=== PATIENT | male | born 1955 | race Caucasian/White ===

== ENCOUNTER 2018-09-25 19:41 | Inpatient (IN) ==
[2018-09-25] MEDS ORDERED: Ondansetron 4 MG/2 ML VIAL IVP ONE ×2 (20:51→23:18)
[2018-09-25] MEDS ORDERED: 0.9 % Sodium Chloride 1,000 ML IVC ONE (20:51)
[2018-09-25 21:08] LABS: Basophils % 0.5 %; Eosinophils % 0.4 %; Hematocrit 51.1 % (37.5-50.1); Immature Granulocytes % 0.3 % (0-4); Lymphocytes % 12.7 %; Mean Corpuscular HGB Conc 35.2 g/dL (31.6-35.5); Mean Corpuscular Hemoglobin 30.3 pg (28.0-33.3); Mean Platelet Volume 9.7 fL (9.4-12.4); Monocytes # 0.9 K/mcL (0.0-1.3); Monocytes % 11.6 %; Neutrophils # 5.8 K/mcL (1.6-8.9); Platelet Count 328 K/mcL (140-400); Red Blood Count 5.94 M/mcL (4.19-5.50); Red Cell Distribution Width 12.6 % (11.5-14.5); Segmented Neutrophils % 74.5 %
[2018-09-25] MEDS ORDERED: Isovue-370 500 ML BOTTLE IVP ONE (21:20)
[2018-09-25 21:30] LABS: Alanine Aminotransferase 78 Units/L (7-52); Albumin 4.5 g/dL (3.5-5.7); Albumin/Globulin Ratio 1.5 (1.1-2.2); Alkaline Phosphatase 80 Units/L (34-104); Aspartate Amino Transferase 45 Units/L (13-39); BUN/Creatinine Ratio 24 (6-26); Bilirubin,Total 1.2 mg/dL (0.3-1.0); Blood Urea Nitrogen 33 mg/dL (8-23); Calcium 9.6 mg/dL (8.6-10.3); Carbon Dioxide 21 mEq/L (23-29); Chloride 90 mEq/L (98-107); Globulin 3.1 g/dL (2.4-3.5); Glucose 191 mg/dL (70-105); Lipase 28 Units/L (11-82); Osmolality,Calculated 280 (280-300); Potassium 3.8 mEq/L (3.5-5.1); Sodium 129 mEq/L (136-145); Total Protein 7.6 g/dL (6.4-8.9); eGFR For Non-African Americans 53 (> 60)
--- NOTE | 2018-09-25 21:35 | Emergency Department Note ---
Disposition Clinical Impression: Small bowel obstruction, GIOVANNY (acute kidney injury) Disposition: Admitted As Inpatient Condition: Good Nausea/Vomiting/Diarrhea HPI - General Chief complaint: ED Nausea/Vomiting/Diarrhea Stated complaint: abd pain/vomiting Time Seen by Provider: 09/25/18 19:49 Source: patient, family Mode of arrival: private vehicle Limitations: no limitations Nursing Notes Reviewed: Yes Vital Signs Reviewed: Yes - History of Present Illness HPI Narrative: 63-year-old male history of a large right lower quadrant hernia who presents with complaints of nausea vomiting and abdominal pain. He most recently had a CT scan roughly 1 week ago for preoperative planning to repair his hernia berny pryor. Reports on Thursday he picked up his brother. Thursday he started having pain in his right lower quadrant followed Thursday by nausea and vomiting. Mother is currently hospitalized for kidney stone as well as "stomach virus". The patient reports only intermittently being able to keep down any solid foods. Reports sharp pain worse with coughing in the area of his hernia as well as wrapping around to his left side. This appears to be new for him. Denies any prior surgical history of his abdomen. No other complaints. Pt Subjective Complaint: nausea, vomiting, abdominal pain Onset (ago): day(s) Consistency: intermittent Improves with: nothing Worsens with: nonthing Associated symptoms: Reports: nausea/vomiting - Related Data Home Medications Medication Instructions Recorded Confirmed Aspirin 05/24/18 Carvedilol 05/24/18 Clopidogrel 05/24/18 Famotidine 05/24/18 Glimepiride 05/24/18 Isosorbide MONOnitrate 05/24/18 Januvia 05/24/18 Simvastatin 05/24/18 metFORMIN 05/24/18 Previous Rx's Medication Instructions Recorded RX: Amoxicillin 875 mg PO BID 7 Days #14 tablet 05/24/18 RX: Cetirizine HCl 10 mg PO DAILY 30 Days #30 tablet 05/24/18 Allergies Allergy/AdvReac Type Severity Reaction Status Date / Time No Known Allergies Allergy Verified 05/24/18 08:26 All systems ED: reviewed and negative except as stated. Constitutional: Denies: fever Gastrointestinal: Reports: abdominal pain, nausea, vomiting. Denies: diarrhea, constipation Genitourinary: Denies: dysuria, hematuria Past Medical History - Past Medical History Attestation: Yes The following information was validated with the patient. Source: patient Medical history: Reports: coronary artery disease, diabetes, hypertension, myocardial infarction, other Psychiatric history: Reports: no psych history - Social History Smoking Status: Current every day smoker Smokeless Tobacco Status: No Alcohol use: Reports: none Drug use: Reports: none Physical Exam - General Limitations: no limitations General appearance: alert, in no apparent distress - Head Head exam: atraumatic, normocephalic, normal inspection - Eye Eye exam: Present: normal appearance - ENT ENT exam: normal exam - Neck Neck exam: Present: normal inspection - Chest Chest inspection: Present: normal inspection, symmetric chest wall rise - Respiratory Respiratory exam: Present: normal lung sounds bilaterally - Cardiovascular Cardiovascular exam: Present: normal rhythm, tachycardia, normal heart sounds - Abdominal Exam Abdominal exam: Present: soft, tenderness (Patient has moderate right lower qu adrant tenderness with a very large right lower quadrant hernia. No overlying cutaneous discoloration.), hernia Abdominal tenderness: Present: RLQ - Extremities Exam Extremities exam: Present: normal inspection, full ROM - Expanded Upper Extremity Exam Shoulder exam: Present: normal inspection, full ROM Arm exam: Present: normal inspection, full ROM Elbow exam: Present: normal inspection, full ROM Forearm/Wrist exam: Present: normal inspection, full ROM Hand exam: Present: normal inspection, full ROM - Expanded Lower Extremity Exam Hip/Pelvis exam: Present: normal inspection, full ROM Upper leg exam: Present: normal inspection, full ROM Knee exam: Present: normal inspection, full ROM Lower leg exam: Present: normal inspection, full ROM Ankle exam: Present: normal inspection, full ROM Foot/toe exam: Present: normal inspection, full ROM - Skin Skin exam: Present: warm, dry Course Course Narrative: Patient seen and examined. Vital signs reviewed. Plan for CT, labs, urinalysis. I discussed with patient and family about repeating imaging and they are in agreement at this time despite him just recently having imaging. We will give him some IV fluids and anti-emetics. - Consultations Consultation #1: I spoke with the on-call surgeon . Discussed patient's history, medical problems, exam, imaging and labs. Evidence of small bowel obstruction. Plan to admit to the hospitalist service. Recommends an NG tube at this time. Vital Signs Temperature 98.1 F 09/25/18 20:00 Pulse Rate 113 09/25/18 20:00 Respiratory Rate 20 09/25/18 20:00 Blood Pressure 120/76 09/25/18 20:00 O2 Sat by Pulse Oximetry 98 09/25/18 20:00 Temperature 98.1 F 09/25/18 20:00 Pulse Rate 101 09/25/18 23:32 Respiratory Rate 16 09/25/18 23:32 Blood Pressure 111/82 09/25/18 23:32 O2 Sat by Pulse Oximetry 96 09/25/18 23:32 Oxygen Delivery Oxygen Delivery Room Air Nausea/Vomiting/Diarrhea - MDM Narrative Medical decision making narrative: 63-year-old male presenting with abdominal pain nausea and vomiting found to have a small bowel obstruction secondary to his large ventral hernia. Labs reviewed with a mild acute kidney injury likely secondary to his dehydration from vomiting. Case discussed with surgery. Plan to admit to the hospitalist with surgical consultation. - Lab Data Lab results reviewed: Yes I reviewed the patient's lab results. Result diagrams: 09/25/18 20:45 09/25/18 20:45 Lab Results 09/25/18 09/25/18 09/25/18 Range/Units 20:45 20:45 20:45 WBC 7.8 (4.3-11.1) K/mcL RBC 5.94 H (4.19-5.50) M/mcL Hgb 18.0 H (12.9-16.9) g/dL Hct 51.1 H (37.5-50.1) % MCV 86.0 (83.0-100.0) fL MCH 30.3 (28.0-33.3) pg MCHC 35.2 (31.6-35.5) g/dL RDW 12.6 (11.5-14.5) % Plt Count 328 (140-400) K/mcL MPV 9.7 (9.4-12.4) fL Immature Gran % 0.3 (0-4) % Seg Neutrophils % 74.5 % Lymphocytes % 12.7 % Monocytes % 11.6 % Eosinophils % 0.4 % Basophils % 0.5 % Neutrophils # 5.8 (1.6-8.9) K/mcL Lymphocytes # 1.0 (0.6-4.6) K/mcL Monocytes # 0.9 (0.0-1.3) K/mcL Eosinophils # 0.0 (0.0-0.6) K/mcL Basophils # 0.0 (0.0-0.2) K/mcL PT (9.4-12.1) Seconds INR Sodium 129 L (136-145) mEq/L Potassium 3.8 (3.5-5.1) mEq/L Chloride 90 L (98-107) mEq/L Carbon Dioxide 21 L (23-29) mEq/L BUN 33 H (8-23) mg/dL Creatinine 1.35 H (0.70-1.30) mg/dL Est GFR ( Amer) > 60 (> 60) Est GFR (Non-Af Amer) 53 L (> 60) BUN/Creatinine Ratio 24 (6-26) Glucose 191 H (70-105) mg/dL Calculated Osmolality 280 (280-300) Lactic Acid 2.0 (0.5-2.2) mmol/L Calcium 9.6 (8.6-10.3) mg/dL Total Bilirubin 1.2 H (0.3-1.0) mg/dL AST 45 H (13-39) Units/L ALT 78 H (7-52) Units/L Alkaline Phosphatase 80 (34-104) Units/L Serum Total Protein 7.6 (6.4-8.9) g/dL Albumin 4.5 (3.5-5.7) g/dL Globulin 3.1 (2.4-3.5) g/dL Albumin/Globulin Ratio 1.5 (1.1-2.2) Lipase 28 (11-82) Units/L Urine Color (Yellow) Urine Clarity (Clear) Urine pH (5.0-8.0) pH Units Ur Specific [place] (1.010-1.025) Urine Protein (Neg-Trace) mg/dL Urine Glucose (UA) (Normal) mg/dL Urine Ketones (Negative) mg/dL Urine Blood (Negative) Urine Nitrite (Negative) Urine Bilirubin (Negative) Urine Urobilinogen (Normal) mg/dL Ur Leukocyte Esterase (Negative) Ur Culture Indicated? (NO) 09/25/18 09/25/18 Range/Units 23:03 23:13 WBC (4.3-11.1) K/mcL RBC (4.19-5.50) M/mcL Hgb (12.9-16.9) g/dL Hct (37.5-50.1) % MCV (83.0-100.0) fL MCH (28.0-33.3) pg MCHC (31.6-35.5) g/dL RDW (11.5-14.5) % Plt Count (140-400) K/mcL MPV (9.4-12.4) fL Immature Gran % (0-4) % Seg Neutrophils % % Lymphocytes % % Monocytes % % Eosinophils % % Basophils % % Neutrophils # (1.6-8.9) K/mcL Lymphocytes # (0.6-4.6) K/mcL Monocytes # (0.0-1.3) K/mcL Eosinophils # (0.0-0.6) K/mcL Basophils # (0.0-0.2) K/mcL PT 11.5 (9.4-12.1) Seconds INR 1.0 Sodium (136-145) mEq/L Potassium (3.5-5.1) mEq/L Chloride (98-107) mEq/L Carbon Dioxide (23-29) mEq/L BUN (8-23) mg/dL Creatinine (0.70-1.30) mg/dL Est GFR ( Amer) (> 60) Est GFR (Non-Af Amer) (> 60) BUN/Creatinine Ratio (6-26) Glucose (70-105) mg/dL Calculated Osmolality (280-300) Lactic Acid (0.5-2.2) mmol/L Calcium (8.6-10.3) mg/dL Total Bilirubin (0.3-1.0) mg/dL AST (13-39) Units/L ALT (7-52) Units/L Alkaline Phosphatase (34-104) Units/L Serum Total Protein (6.4-8.9) g/dL Albumin (3.5-5.7) g/dL Globulin (2.4-3.5) g/dL Albumin/Globulin Ratio (1.1-2.2) Lipase (11-82) Units/L Urine Color Dark Yellow (Yellow) Urine Clarity Clear (Clear) Urine pH 5.5 (5.0-8.0) pH Units Ur Specific [place] > 1.030 H (1.010-1.025) Urine Protein Negative (Neg-Trace) mg/dL Urine Glucose (UA) Normal (Normal) mg/dL Urine Ketones 15 H (Negative) mg/dL Urine Blood Negative (Negative) Urine Nitrite Negative (Negative) Urine Bilirubin Small H (Negative) Urine Urobilinogen Normal (Normal) mg/dL Ur Leukocyte Esterase Negative (Negative) Ur Culture Indicated? NO (NO) - Radiology Data Radiology results reviewed: Yes I reviewed the patient's radiology results. Abdomen/Pelvis CT 09/25/18 21:20 IMPRESSION: There is a distal small bowel obstruction with the point of obstruction within a large complex right lower quadrant ventral hernia. Small bowel obstruction is new from 09/17/2018. There is mural thickening involving several small bowel loops within the hernia and there is mild mesenteric fat stranding. This large ventral hernia contains distal small bowel loops, the ileocecal valve, the cecum and appendix. Calcific aorto iliac atherosclerotic disease. There is a small left lateral penetrating ulcer versus small saccular aneurysm, unchanged. D/ / Shakir Nash MD / Shakir Nash MD Interpreting Provider: Shakir Nash MD Brian - Brian Situation: Demographics, MOA Background: Presenting Complaint, Relevant PMH, Meds, & Allergies Assessment: Course and respsone to treatment, Exam Concerns, Patient/Family Expectation, Pertinant Lab Results Recommendation: Barrier(s) to disposition, Recommendation based on pending studies, treatments, or consults Brian Report Given to: Dr. Hank Torres Repor Time: 23:55
[2018-09-25] MEDS ORDERED: *HR* Morphine 2 MG/ML SYRINGE IVP ONE (23:18)
[2018-09-25] MEDS ORDERED: *HR* FentaNYL (PF) 100 MCG/2 ML VIAL IVP ONE (23:20)
[2018-09-25 23:30] LABS: Prothrombin Time 11.5 Seconds (9.4-12.1)
--- NOTE | 2018-09-25 23:37 | Emergency Department Note ---
Disposition Clinical Impression: Small bowel obstruction Disposition: Admitted As Inpatient Condition: Good Referrals: NONE,PCP [Primary Care Provider] - Forms: ED Satisfaction Letter General Adult HPI - General Chief complaint: ED Nausea/Vomiting/Diarrhea Stated complaint: abd pain/vomiting Time Seen by Provider: 09/25/18 19:49 Source: patient, family Mode of arrival: private vehicle Limitations: no limitations - History of Present Illness Pain Scale: 6 - Related Data Home Medications Medication Instructions Recorded Confirmed Aspirin 05/24/18 Carvedilol 05/24/18 Clopidogrel 05/24/18 Famotidine 05/24/18 Glimepiride 05/24/18 Isosorbide MONOnitrate 05/24/18 Januvia 05/24/18 Simvastatin 05/24/18 metFORMIN 05/24/18 Previous Rx's Medication Instructions Recorded Amoxicillin 875 mg PO BID 7 Days #14 tablet 05/24/18 Cetirizine HCl 10 mg PO DAILY 30 Days #30 tablet 05/24/18 Allergies Allergy/AdvReac Type Severity Reaction Status Date / Time No Known Allergies Allergy Verified 05/24/18 08:26 Constitutional: Denies: fever Gastrointestinal: Reports: abdominal pain, nausea, vomiting. Denies: diarrhea, constipation Genitourinary: Denies: dysuria, hematuria Past Medical History - Past Medical History Medical history: Reports: coronary artery disease, diabetes, hypertension, myocardial infarction, other Psychiatric history: Reports: no psych history - Social History Smoking Status: Current every day smoker Smokeless Tobacco Status: No Alcohol use: Reports: none Drug use: Reports: none Physical Exam - General Limitations: no limitations General appearance: alert, in no apparent distress Course Vital Signs Temperature 98.1 F 09/25/18 20:00 Pulse Rate 113 09/25/18 20:00 Respiratory Rate 20 09/25/18 20:00 Blood Pressure 120/76 09/25/18 20:00 O2 Sat by Pulse Oximetry 98 09/25/18 20:00 Temperature 98.1 F 09/25/18 20:00 Pulse Rate 101 09/25/18 23:32 Respiratory Rate 16 09/25/18 23:32 Blood Pressure 111/82 09/25/18 23:32 O2 Sat by Pulse Oximetry 96 09/25/18 23:32 Oxygen Delivery Oxygen Delivery Room Air Medical Decision Making - Lab Data Result diagrams: 09/25/18 20:45 09/25/18 20:45 Lab Results 09/25/18 09/25/18 09/25/18 Range/Units 20:45 20:45 20:45 WBC 7.8 (4.3-11.1) K/mcL RBC 5.94 H (4.19-5.50) M/mcL Hgb 18.0 H (12.9-16.9) g/dL Hct 51.1 H (37.5-50.1) % MCV 86.0 (83.0-100.0) fL MCH 30.3 (28.0-33.3) pg MCHC 35.2 (31.6-35.5) g/dL RDW 12.6 (11.5-14.5) % Plt Count 328 (140-400) K/mcL MPV 9.7 (9.4-12.4) fL Immature Gran % 0.3 (0-4) % Seg Neutrophils % 74.5 % Lymphocytes % 12.7 % Monocytes % 11.6 % Eosinophils % 0.4 % Basophils % 0.5 % Neutrophils # 5.8 (1.6-8.9) K/mcL Lymphocytes # 1.0 (0.6-4.6) K/mcL Monocytes # 0.9 (0.0-1.3) K/mcL Eosinophils # 0.0 (0.0-0.6) K/mcL Basophils # 0.0 (0.0-0.2) K/mcL PT (9.4-12.1) Seconds INR Sodium 129 L (136-145) mEq/L Potassium 3.8 (3.5-5.1) mEq/L Chloride 90 L (98-107) mEq/L Carbon Dioxide 21 L (23-29) mEq/L BUN 33 H (8-23) mg/dL Creatinine 1.35 H (0.70-1.30) mg/dL Est GFR ( Amer) > 60 (> 60) Est GFR (Non-Af Amer) 53 L (> 60) BUN/Creatinine Ratio 24 (6-26) Glucose 191 H (70-105) mg/dL Calculated Osmolality 280 (280-300) Lactic Acid 2.0 (0.5-2.2) mmol/L Calcium 9.6 (8.6-10.3) mg/dL Total Bilirubin 1.2 H (0.3-1.0) mg/dL AST 45 H (13-39) Units/L ALT 78 H (7-52) Units/L Alkaline Phosphatase 80 (34-104) Units/L Serum Total Protein 7.6 (6.4-8.9) g/dL Albumin 4.5 (3.5-5.7) g/dL Globulin 3.1 (2.4-3.5) g/dL Albumin/Globulin Ratio 1.5 (1.1-2.2) Lipase 28 (11-82) Units/L 09/25/18 Range/Units 23:13 WBC (4.3-11.1) K/mcL RBC (4.19-5.50) M/mcL Hgb (12.9-16.9) g/dL Hct (37.5-50.1) % MCV (83.0-100.0) fL MCH (28.0-33.3) pg MCHC (31.6-35.5) g/dL RDW (11.5-14.5) % Plt Count (140-400) K/mcL MPV (9.4-12.4) fL Immature Gran % (0-4) % Seg Neutrophils % % Lymphocytes % % Monocytes % % Eosinophils % % Basophils % % Neutrophils # (1.6-8.9) K/mcL Lymphocytes # (0.6-4.6) K/mcL Monocytes # (0.0-1.3) K/mcL Eosinophils # (0.0-0.6) K/mcL Basophils # (0.0-0.2) K/mcL PT 11.5 (9.4-12.1) Seconds INR 1.0 Sodium (136-145) mEq/L Potassium (3.5-5.1) mEq/L Chloride (98-107) mEq/L Carbon Dioxide (23-29) mEq/L BUN (8-23) mg/dL Creatinine (0.70-1.30) mg/dL Est GFR ( Amer) (> 60) Est GFR (Non-Af Amer) (> 60) BUN/Creatinine Ratio (6-26) Glucose (70-105) mg/dL Calculated Osmolality (280-300) Lactic Acid (0.5-2.2) mmol/L Calcium (8.6-10.3) mg/dL Total Bilirubin (0.3-1.0) mg/dL AST (13-39) Units/L ALT (7-52) Units/L Alkaline Phosphatase (34-104) Units/L Serum Total Protein (6.4-8.9) g/dL Albumin (3.5-5.7) g/dL Globulin (2.4-3.5) g/dL Albumin/Globulin Ratio (1.1-2.2) Lipase (11-82) Units/L Attestation Statement - Attestation Attestation: I examined this patient and my medical decision-making was reviewed with the Resident Physician. I agree with the documented findings, disposition and treatment plan as described except to the extent set forth below. 63 yaer old male presents to the Ed with complaints of abdominal pain and states that he has not been able to toleate PO since Thursday. Elza appers ot have a large ventral hernia with SBO on exam. We have discussed with Dr. Richards and he will be admitted to medicine with surg consult. Elza will have a NG tube placed and likely have surgery tomorrow
[2018-09-25 23:48] LABS: Bilirubin,Urine Small (Negative); Blood,Urine Negative (Negative); Clarity,Urine Clear (Clear); Color,Urine Dark Yellow (Yellow); Glucose,Urine (UA) Normal (Normal); Ketones,Urine 15 mg/dL (Negative); Leukocyte Esterase,Urine Negative (Negative); Nitrite,Urine Negative (Negative); PH,Urine 5.5 pH Units (5.0-8.0); Protein,Urine Negative (Neg-Trace); Specific Gravity,Urine > 1.030 (1.010-1.025); Urobilinogen,Urine Normal (Normal)
[2018-09-26] MEDS ORDERED: Naloxone 0.4 MG/ML INJ IVP PRN ×2 (02:33→14:57)
--- NOTE | 2018-09-26 02:44 | Internal Med History&Physical ---
Date of Encounter: 09/26/18 Time of Encounter: 03:30 Internal Medicine - H&P: HPI Chief complaint: Small bowel obstruction Admitted From: Emergency Dept Plans for Post Hospital Care: Home History of present illness: Mr. العراقي is a 63 year old male Patient presented to the emergency room with complaints of abdominal pain, nausea and vomiting. He is a known history of large right lower quadrant hernia. He had a CT scan about 1 week ago for preoperative planning. He says on Thursday he picked up his brother, done the following day began having right lower quadrant pain that increased in intensity throughout the week. Since then he has not been able to keep down solid foods. He describes the pain as sharp in nature and hurts worse with coughing. There is some radiation that goes around to his left side. He has no other history of abdominal surgeries. In the emergency room patient's vital signs initially showed tachycardia with rate of 113 and respiratory rate of 20 but these improved over time. Patient's white count was 7.8 and hemoglobin was 18.0. His INR was 1.0, sodium was 129 and creatinine was 1.35. He also has elevated bilirubin, AST and ALT all of which have improved from previous laboratory studies Patient's urinalysis was negative for infection. Abdominal pelvis CT was performed that showed: There is a distal small bowel obstruction with the point of obstruction within a large complex right lower quadrant ventral hernia. Small bowel obstruction is new from 09/17/2018. There is mural thickening involving several small bowel loops within the hernia and there is mild mesenteric fat stranding. This large ventral hernia contains distal small bowel loops, the ileocecal valve, the cecum and appendix. Calcific aorto iliac atherosclerotic disease. There is a small left lateral penetrating ulcer versus small saccular aneurysm, unchanged. Emergency room spoke with on-call surgery Dr. Richards. He recommended NG tube with admission to the hospitalist service. Upon my evaluation, patient is resting in the hospital bed in no acute distress. NG tube has been placed and is draining dark green material. He states his abdominal pain is much better, but he finds the NG tube uncomfortable. He denies chest pain, abdominal pain, diarrhea and constipation. He feels somewhat nauseous. He says he has had this hernia for several years but has gradually increased in size. His brother has metastatic cancer in his stomach, kidney and lung and he was taking care of him trying to lift him up. He thinks this event may of contributed to his current state. As far as family history patient denies heart disease and diabetes on either side of his family. He however does have diabetes and heart disease. Past Med Surg Social Fam HX - Past Medical History Medical history: coronary artery disease, diabetes, hypertension, myocardial infarction, other Additional medical history: SD with stents Psychiatric history: no psych history - Past Surgical History Surgical History: appendectomy, cholecystectomy - Social History Smoking Status: Current every day smoker Smokeless Tobacco Status: No Alcohol use: none Drug use: none Internal Medicine - H&P: Meds Amoxicillin 875 mg PO BID 7 Days #14 tablet 05/24/18 [Rx] Aspirin 05/24/18 [History] Carvedilol 05/24/18 [History] Cetirizine HCl 10 mg PO DAILY 30 Days #30 tablet 05/24/18 [Rx] Clopidogrel 05/24/18 [History] Famotidine 05/24/18 [History] Glimepiride 05/24/18 [History] Isosorbide MONOnitrate 05/24/18 [History] Januvia 05/24/18 [History] Simvastatin 05/24/18 [History] metFORMIN 05/24/18 [History] Allergy/AdvReac Type Severity Reaction Status Date / Time No Known Allergies Allergy Verified 05/24/18 08:26 All Systems PM: A 10-system review of systems was performed and is negative for pertinent findings except as documented above in the HPI. - Constitutional Vitals: Temp Pulse Resp BP Pulse Ox 97.8 F 98 16 107/70 95 09/26/18 01:24 09/26/18 01:24 09/26/18 01:24 09/26/18 01:24 09/26/18 01:24 General appearance: Present: cooperative, A&O X 3, pleasant, no acute distress, answers questions appropriately Exam: - - Head Head exam: Present: normal inspection - Eye Eye exam: Present: EOMI, normal appearance - ENT Additional comments: NG tube in place and secured - Neck Neck exam general surgery: Present: full ROM - Respiratory Respiratory exam: Present: CTAB. Absent: rales, respiratory distress, rhonchi, wheezes - Cardiovascular Cardiovascular exam: Present: RRR. Absent: diastolic murmur, systolic murmur - GI/Abdominal GI/Abdominal exam: Present: normal bowel sounds, soft, tenderness Additional comments: Large hernia located in right lower quadrant. Mild tenderness over the hernia with palpation. Bowel sounds heard over the hernia. - Extremities Exam Extremities exam: Present: warm, radial pulses palpable and symmetrical. Absent: pedal edema, tenderness - Neurological Exam Neurological exam: Present: no focal deficits, strengths equal and symetr throughout. Absent: motor sensory deficit, facial droop, speech deficit - Skin Skin exam: Present: dry, normal color, warm Internal Med - H&P Results - Labs CBC & Chem 7: 09/25/18 20:45 09/25/18 20:45 Labs: Short CBC 09/25/18 Range/Units 20:45 WBC 7.8 (4.3-11.1) K/mcL Hgb 18.0 H (12.9-16.9) g/dL Hct 51.1 H (37.5-50.1) % Plt Count 328 (140-400) K/mcL Neutrophils # 5.8 (1.6-8.9) K/mcL BMP 09/25/18 20:45 Sodium 129 L Potassium 3.8 Chloride 90 L Carbon Dioxide 21 L BUN 33 H Creatinine 1.35 H Glucose 191 H Calcium 9.6 Liver Function 09/25/18 Range/Units 20:45 Total Bilirubin 1.2 H (0.3-1.0) mg/dL AST 45 H (13-39) Units/L ALT 78 H (7-52) Units/L Alkaline Phosphatase 80 (34-104) Units/L Albumin 4.5 (3.5-5.7) g/dL Urine 09/25/18 Range/Units 23:03 Urine Color Dark Yellow (Yellow) Urine Clarity Clear (Clear) Urine pH 5.5 (5.0-8.0) pH Units Ur Specific [place] > 1.030 H (1.010-1.025) Urine Protein Negative (Neg-Trace) mg/dL Urine Glucose (UA) Normal (Normal) mg/dL - Impressions ITS Impressions Abdomen/Pelvis CT 09/25/18 21:20 IMPRESSION: There is a distal small bowel obstruction with the point of obstruction within a large complex right lower quadrant ventral hernia. Small bowel obstruction is new from 09/17/2018. There is mural thickening involving several small bowel loops within the hernia and there is mild mesenteric fat stranding. This large ventral hernia contains distal small bowel loops, the ileocecal valve, the cecum and appendix. Calcific aorto iliac atherosclerotic disease. There is a small left lateral penetrating ulcer versus small saccular aneurysm, unchanged. D/ / Shakir Nash MD / Shakir Nash MD Interpreting Provider: Shakir Nash MD - Assessment and plan (1) Ventral hernia with bowel obstruction Current Visit: Yes Status: Acute Assessment and plan: As seen on physical exam and confirmed with abdominal CT. Surgery has been notified and will see the patient in the a.m. Nothing by mouth NG tube in place Follow-up surgery recommendations Nausea and pain management as needed (2) Abdominal pain Current Visit: Yes Status: Acute Assessment and plan: Improved after NG tube. Likely secondary to the ventral hernia with bowel obstruction. Management as above Qualifiers: Abdominal location: right lower quadrant Qualified Code(s): R10.31 - Right lower quadrant pain (3) Hyponatremia Current Visit: Yes Status: Acute Assessment and plan: Sodium was 129 in the emergency room. Likely secondary to volume loss from vomiting. Patient did receive a liter of normal saline. Follow-up a.m. labs Continue fluid hydration (4) GIOVANNY (acute kidney injury) Current Visit: Yes Status: Acute Assessment and plan: Patient's creatinine slightly elevated at 1.35. baseline appears to be around 1.0 patient received 1 L normal saline in the emergency room. Continue IV fluid hydration Repeat a.m. labs (5) Diabetes Current Visit: Yes Status: Acute Assessment and plan: Patient is not insulin-dependent diabetic. Hold home meds Nothing by mouth, diabetic diet when able to eat Monitor sugars every 6 hours Low-dose insulin sliding scale as needed Qualifiers: Diabetes mellitus type: type 2 Diabetes mellitus intermediate insulin use: without superintendent terminal use Diabetes mellitus complication status: without complication Qualified Code(s): E11.9 - Type 2 diabetes mellitus without complications (6) DVT prophylaxis Current Visit: Yes Status: Acute Assessment and plan: SCDs - Time Spent With Patient Total time spent is greater than 50% in coordination of care (as documented) at patient's floor/unit and/or counseling patient: Greater than 35 minutes
[2018-09-26] MEDS ORDERED: Ondansetron 4 MG/2 ML VIAL IVP PRN (04:04)
[2018-09-26] MEDS ORDERED: *HR* Dextrose 50 % in Water (Syg) 50 ML SYRINGE IVP PRN ×2 (04:05→14:57)
[2018-09-26] MEDS ORDERED: D5% in Water 1,000 ML IVC PRN ×2 (04:05→14:57)
[2018-09-26] MEDS ORDERED: Dextrose Gel 15 GM/37.5 ML TUBE PO PRN ×4 (04:05→14:57)
[2018-09-26] MEDS ORDERED: OXYCODONE Oral CONC 10 MG/0.5 ML ORAL.SYG SL PRN ×2 (04:13)
[2018-09-26] MEDS ORDERED: 0.9 % Sodium Chloride 1,000 ML IVC ONE (04:15)
[2018-09-26 05:13] LABS: Hematocrit 51.2 % (37.5-50.1); Hemoglobin 18.1 g/dL (12.9-16.9); Mean Corpuscular HGB Conc 35.4 g/dL (31.6-35.5); Mean Corpuscular Hemoglobin 30.7 pg (28.0-33.3); Mean Corpuscular Volume 86.8 fL (83.0-100.0); Mean Platelet Volume 9.6 fL (9.4-12.4); Platelet Count 324 K/mcL (140-400); Red Cell Distribution Width 12.8 % (11.5-14.5)
[2018-09-26 05:43] LABS: Alanine Aminotransferase 103 Units/L (7-52); Albumin 4.4 g/dL (3.5-5.7); Albumin/Globulin Ratio 1.4 (1.1-2.2); Alkaline Phosphatase 74 Units/L (34-104); Aspartate Amino Transferase 59 Units/L (13-39); BUN/Creatinine Ratio 29 (6-26); Bilirubin,Total 1.1 mg/dL (0.3-1.0); Blood Urea Nitrogen 38 mg/dL (8-23); Calcium 9.4 mg/dL (8.6-10.3); Carbon Dioxide 23 mEq/L (23-29); Chloride 89 mEq/L (98-107); Globulin 3.1 g/dL (2.4-3.5); Glucose 217 mg/dL (70-105); Osmolality,Calculated 284 (280-300); Potassium 4.1 mEq/L (3.5-5.1); Sodium 129 mEq/L (136-145); Total Protein 7.5 g/dL (6.4-8.9); eGFR For Non-African Americans 54 (> 60)
[2018-09-26] MEDS: Insulin LISPRO 300 UNITS/3 ML VIAL SQ SCH ×2 (05:50→11:59)
--- NOTE | 2018-09-26 07:20 | Event Note ---
Date of Encounter: 09/26/18 Time of Encounter: 09:06 Please see full H&P by my colleague from earlier today. Dry mouth. Abd pain has decreased 08/26. Intermittent dizziness. Last BM yesterday morning. Passing flatus today. On exam, right lower quadrant hernia without skin color change or tenderness, bowel sounds positive. Cont NPO, NGT and will follow GS recommendations.
--- NOTE | 2018-09-26 11:10 | General Surgery Consult Note ---
Date of Encounter: 09/26/18 Time of Encounter: 10:00 Assessment and Plan (1) Incisional hernia with obstruction but no gangrene Current Visit: Yes Status: Acute We will plan open repair of incisional hernia with lysis of adhesions. I discussed risks and benefits with the patient understands wishes to proceed. History of Present Illness Consult date: 09/26/18 Reason for consult: abdominal pain History of present illness: The patient is admitted from the emergency room with evidence of bowel obstruction. He has a long surgical history. Underwent cholecystectomy in the remote past. He presented to the emergency room about 10 years ago with severe appendicitis. An open appendectomy was performed by Dr. Naidu. The patient developed a wound infection and had minor wound complications. Within a year he had a large incisional hernia in the right lower quadrant. This has been present for 10 years. I personally reviewed the CAT scans from 2014 and from 2 weeks ago as well as his CAT scan from today. The hernia has been present at least 4 years in its current state. 2 weeks ago there is no evidence of bowel obstruction. Today the patient has a large amount of bowel in the hernia sac including right colon and small bowel. The fascia defect really is not very large. There appears to be a transition point in the hernia sac. I would recommend operative repair I do not think that this will resolve spontaneously. Past Med Surg Social Fam HX - Past Medical History Medical history: coronary artery disease, diabetes, hypertension, myocardial infarction, other Additional medical history: AK with stents Psychiatric history: no psych history - Past Surgical History Surgical History: appendectomy, cholecystectomy - Social History Smoking Status: Current every day smoker Smokeless Tobacco Status: No Alcohol use: none Drug use: none Medications and Allergies Amoxicillin 875 mg PO BID 7 Days #14 tablet 05/24/18 [Rx] Aspirin 05/24/18 [History] Carvedilol 05/24/18 [History] Cetirizine HCl 10 mg PO DAILY 30 Days #30 tablet 05/24/18 [Rx] Clopidogrel 05/24/18 [History] Famotidine 05/24/18 [History] Glimepiride 05/24/18 [History] Isosorbide MONOnitrate 05/24/18 [History] Januvia 05/24/18 [History] Simvastatin 05/24/18 [History] metFORMIN 05/24/18 [History] Allergy/AdvReac Type Severity Reaction Status Date / Time No Known Allergies Allergy Verified 05/24/18 08:26 Review of Systems All systems PM: The remainder of the systems were reviewed and are negative General Surgery Exam Initial Vital Signs Temp Pulse Resp BP Pulse Ox 98.1 F 113 20 120/76 98 09/25/18 20:00 09/25/18 20:00 09/25/18 20:00 09/25/18 20:00 09/25/18 20:00 - General physical appearance well developed, well nourished, no distress, other (Nasogastric tube in place) - Neck no masses, no bruits, trachea midline, no lymphadectomy, no venous distension - Respiratory normal expansion, normal respiratory effort, clear to percussion, clear to auscultation - Cardiovascular Cardiovascular exam: Present: RRR, no murmurs/rubs/gallops - Abdomen Abdomen general surgery: Present: bowel sounds present, non tender (The patient was distended prior to nasogastric tube but is not distended now. He has been enormous right lower quadrant hernia I am unable to reduce this) - Neurologic Present: CN 2-12 grossly intact, normal coordination, normal sensation - Psychiatric Psychiatric general surgery: Present: appropriate, oriented to person, oriented to place, oriented to time, speech is normal, memory intact Exam Initial Vital Signs Temp Pulse Resp BP Pulse Ox 98.1 F 113 20 120/76 98 09/25/18 20:00 09/25/18 20:00 09/25/18 20:00 09/25/18 20:00 09/25/18 20:00 Results - Labs 09/26/18 04:51 09/26/18 04:51 Abnormal lab results RBC 5.90 M/mcL (4.19-5.50) H 09/26/18 04:51 Hgb 18.1 g/dL (12.9-16.9) H 09/26/18 04:51 Hct 51.2 % (37.5-50.1) H 09/26/18 04:51 Sodium 129 mEq/L (136-145) L 09/26/18 04:51 Chloride 89 mEq/L (98-107) L 09/26/18 04:51 BUN 38 mg/dL (8-23) H 09/26/18 04:51 Creatinine 1.33 mg/dL (0.70-1.30) H 09/26/18 04:51 Est GFR (Non-Af Amer) 54 (> 60) L 09/26/18 04:51 BUN/Creatinine Ratio 29 (6-26) H 09/26/18 04:51 Glucose 217 mg/dL (70-105) H 09/26/18 04:51 POC Glucose 219 mg/dL (70-99) H 09/26/18 05:19 Total Bilirubin 1.1 mg/dL (0.3-1.0) H 09/26/18 04:51 AST 59 Units/L (13-39) H 09/26/18 04:51 ALT 103 Units/L (7-52) H 09/26/18 04:51 Ur Specific [place] > 1.030 (1.010-1.025) H 09/25/18 23:03 Urine Ketones 15 mg/dL (Negative) H 09/25/18 23:03 Urine Bilirubin Small (Negative) H 09/25/18 23:03 Diabetes panel 09/25/18 09/26/18 Range/Units 20:45 04:51 Sodium 129 L 129 L (136-145) mEq/L Potassium 3.8 4.1 (3.5-5.1) mEq/L Chloride 90 L 89 L (98-107) mEq/L Carbon Dioxide 21 L 23 (23-29) mEq/L BUN 33 H 38 H (8-23) mg/dL Creatinine 1.35 H 1.33 H (0.70-1.30) mg/dL Glucose 191 H 217 H (70-105) mg/dL Calcium 9.6 9.4 (8.6-10.3) mg/dL AST 45 H 59 H (13-39) Units/L ALT 78 H 103 H (7-52) Units/L Alkaline Phosphatase 80 74 (34-104) Units/L Albumin 4.5 4.4 (3.5-5.7) g/dL Calcium panel 09/25/18 09/26/18 Range/Units 20:45 04:51 Calcium 9.6 9.4 (8.6-10.3) mg/dL Albumin 4.5 4.4 (3.5-5.7) g/dL Pituitary panel 09/25/18 09/26/18 Range/Units 20:45 04:51 Sodium 129 L 129 L (136-145) mEq/L Potassium 3.8 4.1 (3.5-5.1) mEq/L Chloride 90 L 89 L (98-107) mEq/L Carbon Dioxide 21 L 23 (23-29) mEq/L BUN 33 H 38 H (8-23) mg/dL Creatinine 1.35 H 1.33 H (0.70-1.30) mg/dL Glucose 191 H 217 H (70-105) mg/dL Calcium 9.6 9.4 (8.6-10.3) mg/dL Adrenal panel 09/25/18 09/26/18 Range/Units 20:45 04:51 Sodium 129 L 129 L (136-145) mEq/L Potassium 3.8 4.1 (3.5-5.1) mEq/L Chloride 90 L 89 L (98-107) mEq/L Carbon Dioxide 21 L 23 (23-29) mEq/L BUN 33 H 38 H (8-23) mg/dL Creatinine 1.35 H 1.33 H (0.70-1.30) mg/dL Glucose 191 H 217 H (70-105) mg/dL Calcium 9.6 9.4 (8.6-10.3) mg/dL Total Bilirubin 1.2 H 1.1 H (0.3-1.0) mg/dL AST 45 H 59 H (13-39) Units/L ALT 78 H 103 H (7-52) Units/L Alkaline Phosphatase 80 74 (34-104) Units/L Albumin 4.5 4.4 (3.5-5.7) g/dL All other labs normal. - Imaging CT scan - abdomen: image reviewed (I personally reviewed the CAT scan images from 2014, 2 weeks ago, and the current CAT scan. He has new onset incarceration of his complex incisional hernia in the right lower quadrant) Consult Discharge Plan - Plan Referrals: NONE,PCP [Primary Care Provider] -
[2018-09-26] MEDS ORDERED: Ondansetron 4 MG/2 ML VIAL ONE ×2 (11:40→11:45)
[2018-09-26] MEDS ORDERED: *HR* Midazolam HCl 2 MG/2 ML VIAL ONE (11:40)
[2018-09-26] MEDS ORDERED: *HR* Propofol 200 MG/20 ML VIAL IVP ONE (11:40)
[2018-09-26] MEDS ORDERED: *HR* Rocuronium Bromide 50 MG/5 ML VIAL ONE (11:40)
[2018-09-26] MEDS ORDERED: *HR* FentaNYL (PF) 100 MCG/2 ML VIAL ONE (11:40)
[2018-09-26] MEDS ORDERED: Lidocaine -MPF 2% 2 ML VIAL ONE (11:40)
[2018-09-26] MEDS ORDERED: Lidocaine -MPF 4% 5 ML AMPUL ONE (11:41)
[2018-09-26] MEDS ORDERED: Dexamethasone 4 MG/ML VIAL ONE (11:45)
--- NOTE | 2018-09-26 11:50 | Anesthesia Evaluation PreOp ---
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 %) Pulmonary History: Smoker CUPOLA CHARGER History: Denies Any Significant HX Other Medical History: Renal (GIOVANNY ON CKD), Diabetes Type II Anesthesia History: No Prior Anesthetic Complications, Past Anesthesia Alcohol Use: none Drug use: none Medications and Allergies Amoxicillin 875 mg PO BID 7 Days #14 tablet 05/24/18 [Rx] Aspirin 05/24/18 [History] Carvedilol 05/24/18 [History] Cetirizine HCl 10 mg PO DAILY 30 Days #30 tablet 05/24/18 [Rx] Clopidogrel 05/24/18 [History] Famotidine 05/24/18 [History] Glimepiride 05/24/18 [History] Isosorbide MONOnitrate 05/24/18 [History] Januvia 05/24/18 [History] Simvastatin 05/24/18 [History] metFORMIN 05/24/18 [History] Allergy/AdvReac Type Severity Reaction Status Date / Time No Known Allergies Allergy Verified 05/24/18 08:26 - Meds/Allergy Pre-op Review Medications Reviewed: Yes Allergies Reviewed: Yes Anesthesia Results - Labs 09/26/18 04:51 09/26/18 04:51 Anesthesia Exam Vital Signs/O2 Sat/Glucose, Most Recent Temp Pulse Resp BP Pulse Ox 98.2 F 90 18 108/66 95 09/26/18 07:35 09/26/18 07:35 09/26/18 07:35 09/26/18 07:35 09/26/18 07:35 Blood Glucose* 157 Weight: 95 KG - BMI 29 NPO (# of Hours): >8 - NGT - HEENT Mallampati: II Teeth: Edentulous Oral Opening: Greater than 3 - Cardiac Rhythm: Regular - Pulmonary Breath Sounds: bilateral Clear Respiratory Effort: Symmetrical Anesthesia Assess/Plan ASA Score: 3, E Anesthetic Plan: General Monitoring Plan: Standard Monitors Recovery Plan: PACU
[2018-09-26] MEDS ORDERED: Acetaminophen IV 1,000 MG/100 ML INFUS..BTL ONE (12:24)
[2018-09-26] MEDS ORDERED: *HR* Succinylcholine 200 MG/10 ML VIAL IVP ONE (12:38)
[2018-09-26] MEDS ORDERED: *HR* OxyCODONE Immed Rel 5 MG TABLET PO PRN (12:39)
[2018-09-26] MEDS ORDERED: *HR* Promethazine 25 MG/ML VIAL IVP PRN (12:39)
[2018-09-26] MEDS ORDERED: Acetaminophen IV 1,000 MG/100 ML INFUS..BTL IVPB ONE (12:39)
[2018-09-26] MEDS ORDERED: *HR* Meperidine 25 MG/ML SYRINGE IVP PRN (12:39)
[2018-09-26] MEDS ORDERED: Ipratropium Neb 0.5 MG NEBULIZER IH ONE (12:39)
[2018-09-26] MEDS ORDERED: Ondansetron 4 MG/2 ML VIAL IVP ONE ×2 (12:39→14:57)
[2018-09-26] MEDS ORDERED: Albuterol 2.5 MG/3 ML NEBULIZER IH ONE (12:39)
[2018-09-26] MEDS ORDERED: *HR* HYDROmorphone (PF) 1 MG/ML SYRINGE IVP PRN (12:39)
[2018-09-26] MEDS ORDERED: *HR* HYDROMORPHONE 2 MG/ML VIAL ONE (13:27)
[2018-09-26] MEDS ORDERED: *HR* PHENYLEPHRINE 1,000 MCG/10 ML SYRINGE IVP ONE (13:29)
--- NOTE | 2018-09-26 13:52 | Operative Note ---
Date of procedure: 09/26/18 Pre-op diagnosis: Incisional hernia and bowel obstruction Post-op diagnosis: same Procedure: Repair of incisional hernia with mesh Implants: symbotex skirted 10 x 15 cm Anesthesia: DON Surgeon: Viral Richards Was there an licensed physical therapy assistant present: No Estimated blood loss (cc): 25 Specimen: Hernia sac Condition: stable Disposition: PACU Procedure in Detail: After informed consent the patients taking major operative suite placed supine position given adequate general endotracheal anesthesia. The abdomen was prepped and draped in sterile fashion utilizing ChloraPrep standard draping techniques. Timeout was taken and the patient was identified. Made a transverse incision starting and his old appendectomy incision and extended toward the midline. I exposed an absolutely enormous hernia sac at least 25 cm across containing a large amount of right colon and small bowel. This was circumferentially dissected from the subcutaneous tissue. This was also dissected off the anterior abdominal wall. The hernia sac was entered. To my surprise, very little adhesion tissue was present. I inspected the small bowel. The small bowel was obstructed with the small bowel crossed over the edge of the fascia. I carefully inspected this area small bowel was viable. There is a small area of bleeding at the point of obstruction, however, this is not actively bleeding at time of inspection. I reduced the entire bowel contents in the abdomen. The hernia defect was about 8 cm by 4 cm. I used a 15 cm x 10 cm symbotex skirted mesh. This is carefully placed against the posterior aspect of the abdominal wall. I secured the Felix with estefani and then began closing the defect with 3 stitches on each end. Once I had the orientation perfect I used estefani on the superior and inferior skirt making sure that there were no wrinkles in the mesh. This gave an excellent technical result. The [place] tissue defect was closed with interrupted 0 Nurolon stitches approximate 12 stitches were used. The hernia sac was completely resected. I placed #10 Lucas-Bernal drain in the enormous for the hernia used to be. I injected the fascia with 25 mL of half percent Marcaine for local pain management. Skin was reapproximated with interrupted 2-0 Vicryl and skin clips. He tolerated the procedure well.
--- NOTE | 2018-09-26 14:32 | Anesthesia Evaluation Post Op ---
Date of Encounter: 09/26/18 Time of Encounter: 14:32 - Discharge PostOp Status: Transfer Patient to floor (Patient's vital signs have been reviewed. Patient is stable postoperatively and has adequately recovered from anesthesia. Patient is determined to have stable airway patency and respiratory function including respiratory rate and oxygen saturation. Patient has a stable heart rate, blood pressure and adequate hydration. Patients mental status is acceptable. Patients temperature is appropriate. Pain and nausea are adequately controlled.)
[2018-09-26] MEDS: *HR* Metoprolol 5 MG/5 ML VIAL IVP SCH (18:27)
[2018-09-26] MEDS: *HR* Heparin 5,000 UNIT/ML VIAL SQ SCH (18:27)
[2018-09-26] MEDS: OXYCODONE Oral CONC 10 MG/0.5 ML ORAL.SYG SL PRN (18:27)
[2018-09-26] MEDS ORDERED: OXYCODONE Oral CONC 10 MG/0.5 ML ORAL.SYG SL ONE (21:14)
[2018-09-27] MEDS: *HR* Metoprolol 5 MG/5 ML VIAL IVP SCH ×4 (00:08→19:01)
[2018-09-27] MEDS: Insulin LISPRO 300 UNITS/3 ML VIAL SQ SCH ×4 (01:17→19:01)
[2018-09-27] MEDS: OXYCODONE Oral CONC 10 MG/0.5 ML ORAL.SYG SL PRN ×3 (03:45→21:32)
[2018-09-27] MEDS ORDERED: 0.9 % Sodium Chloride 1,000 ML IVC SCH (04:30)
[2018-09-27] MEDS: *HR* Heparin 5,000 UNIT/ML VIAL SQ SCH ×2 (05:01→19:00)
[2018-09-27] MEDS ORDERED: Insulin LISPRO 300 UNITS/3 ML VIAL SQ SCH (06:00)
[2018-09-27] MEDS ORDERED: Saliva Stimulant 100ml BOTTLE PO PRN (07:34)
[2018-09-27] MEDS ORDERED: BENZOCAINE/MENTHOL 1 LOZENGE (BAG OF 6) MM PRN (07:34)
--- NOTE | 2018-09-27 07:42 | General Surgery Progress Note ---
<Lexi Zheng - Last Filed: 09/27/18 13:06> Date of Encounter: 09/27/18 Time of Encounter: 08:15 - Assessment and Plan (1) Incisional hernia with obstruction but no gangrene Current Visit: Yes Status: Acute POD#1 incisional hernia repair with mesh Abdomen is soft with bowel sounds present. Incision site is clean and dry. NG tube total output -2400ml. Wound drain total output 120ml. Continue to monitor. Subjective Narrative: Patient seen and examined. No acute events overnight. Patient is resting comfortably in bed. Patient is postop day 1 from repair of incisional hernia with mesh. Patient states the surgery went very well. Reports some pain at surgical site. Complains of dry mouth. Admits some nausea. Denies any other complaints. Objective Vital Signs - Last 8 Hours Temp Pulse Resp BP Pulse Ox 09/27/18 07:12 98.1 F 92 18 123/83 91 09/27/18 03:42 99 F 102 18 134/78 91 09/26/18 23:56 98.2 F 100 19 148/94 94 Intake and Output 09/26/18 09/26/18 09/27/18 15:59 23:59 07:59 Intake Total 0 / 0 Output Total 1275 / 1275 450 / 450 1570 / 1570 Balance -1275 / -1275 -450 / -450 -1570 / -1570 Intake: Oral 0 / 0 Output: Urine 200 / 200 400 / 400 100 / 100 Gastric Tube Lavage Amount 50 / 50 700 / 700 Right Nare 50 / 50 700 / 700 Estimated Blood Loss 25 / 25 Gastric Drainage 1000 / 1000 700 / 700 Wound Drainage 50 / 50 70 / 70 Right Abdomen 50 / 50 70 / 70 Other: Meal npo Percent of Meal Consumed 0% Weight 95.23 kg Blood Glucose* 145 211 257 Patient Weight 09/27/18 23:59 Weight 95.23 kg - Additional Exam VITAL SIGNS: Reviewed. See [facility] GENERAL: In no apparent distress. Nasogastric tube in place, draining dark brown fluid. HEENT: Normocephalic, atraumatic, pupils are equal and reactive, extraocular motions intact, oral mucosa is pink and dry, there is no neck adenopathy or JVD noted. CHEST/RESPIRATORY: The thorax is free from signs of trauma. Lung sounds: clear t o auscultation, normal respiratory effort CARDIAC: Regular rate and rhythm. Normal S1 and S2, without murmurs, gallops, or rubs. VASCULAR: No Edema. No cyanosis or clubbing. Warm and dry. ABDOMEN: Soft, expected postoperative tenderness, bowel sounds present, n ondistended INCISION: Surgical incision(s)are clean, dry, and intact. There are no signs of cellulitis or infection noted. WOUNDS/DRAINS: RLQ YULI drain site isWNL. There is minimal sanguinous drainage in the YULI bulb MUSCULOSKELETAL: Good range of motion of all major joints. Extremities without clubbing, cyanosis or edema. NEUROLOGIC EXAM: Alert and oriented x 3. Speech normal. Follows commands. PSYCHIATRIC: Mood normal. SKIN: No rash or lesions. - Labs 09/27/18 07:23 09/27/18 07:23 - VTE Documentation of Mechanical Device: Intermittent pneumatic compression device Consult Discharge Plan - Plan Referrals: NONE,PCP [Primary Care Provider] - <Viral Richards - Last Filed: 09/28/18 08:01> Date of Encounter: 09/27/18 - Assessment and Plan (1) Incisional hernia with obstruction but no gangrene Current Visit: Yes Status: Acute Objective Vital Signs - Last 8 Hours Temp Pulse Resp BP Pulse Ox 09/28/18 06:40 99.3 F 96 16 119/75 96 09/28/18 04:30 98.8 F 101 15 109/70 93 Intake and Output 09/27/18 09/28/18 09/28/18 23:59 07:59 15:59 Intake Total 1999 0 / 0 Output Total 1590 / 1590 630 / 630 Balance 410 / 410 -630 / -630 Intake: IV Fluids 1999 0.9 % Sodium Chloride 1,000 ML 1999 @ 100 mls/hr IVC .Q10H THU Rx#: [id number] Oral 0 / 0 0 / 0 Output: Urine 0 / 0 100 / 100 Gastric Drainage 1350 / 1350 450 / 450 Wound Drainage 240 / 240 80 / 80 Right Abdomen 240 / 240 80 / 80 Other: Meal npo Percent of Meal Consumed 0% Weight 95.6 kg Blood Glucose* 225 194 Patient Weight 09/28/18 23:59 Weight 95.6 kg - Labs 09/28/18 06:50 09/28/18 06:50 Diabetes panel 09/27/18 09/28/18 Range/Units 07:23 06:50 Sodium 136 141 (136-145) mEq/L Potassium 3.9 3.5 (3.5-5.1) mEq/L Chloride 95 L 98 (98-107) mEq/L Carbon Dioxide 26 29 (23-29) mEq/L BUN 47 H 51 H (8-23) mg/dL Creatinine 1.44 H 1.38 H (0.70-1.30) mg/dL Glucose 250 H 212 H (70-105) mg/dL Calcium 9.1 9.0 (8.6-10.3) mg/dL Calcium panel 09/27/18 09/28/18 Range/Units 07:23 06:50 Calcium 9.1 9.0 (8.6-10.3) mg/dL Pituitary panel 09/27/18 09/28/18 Range/Units 07:23 06:50 Sodium 136 141 (136-145) mEq/L Potassium 3.9 3.5 (3.5-5.1) mEq/L Chloride 95 L 98 (98-107) mEq/L Carbon Dioxide 26 29 (23-29) mEq/L BUN 47 H 51 H (8-23) mg/dL Creatinine 1.44 H 1.38 H (0.70-1.30) mg/dL Glucose 250 H 212 H (70-105) mg/dL Calcium 9.1 9.0 (8.6-10.3) mg/dL Adrenal panel 09/27/18 09/28/18 Range/Units 07:23 06:50 Sodium 136 141 (136-145) mEq/L Potassium 3.9 3.5 (3.5-5.1) mEq/L Chloride 95 L 98 (98-107) mEq/L Carbon Dioxide 26 29 (23-29) mEq/L BUN 47 H 51 H (8-23) mg/dL Creatinine 1.44 H 1.38 H (0.70-1.30) mg/dL Glucose 250 H 212 H (70-105) mg/dL Calcium 9.1 9.0 (8.6-10.3) mg/dL - Attending Attestation I have personally performed a face to face evaluation on this patient. I have reviewed and agree with the care plan. History and Exam by me shows: The patient is seen and evaluated on morning rounds with clinical nurse practitioner. I have reviewed the documentation and agree with its content. The patient has had a tremendous response to repair a very large right lower quadrant hernia. Lucas-Bernal has sanguinous drainage. Continue nasogastric tube drainage today. Await bowel function Viral Richards MD FACS
[2018-09-27 07:50] LABS: Hematocrit 48.3 % (37.5-50.1); Hemoglobin 16.8 g/dL (12.9-16.9); Mean Corpuscular HGB Conc 34.8 g/dL (31.6-35.5); Mean Corpuscular Hemoglobin 30.4 pg (28.0-33.3); Mean Corpuscular Volume 87.3 fL (83.0-100.0); Platelet Count 359 K/mcL (140-400); Red Blood Count 5.53 M/mcL (4.19-5.50); Red Cell Distribution Width 13.1 % (11.5-14.5)
[2018-09-27 08:00] LABS: Calcium 9.1 mg/dL (8.6-10.3); Magnesium 2.6 mg/dL (1.6-2.6); Potassium 3.9 mEq/L (3.5-5.1)
--- NOTE | 2018-09-27 12:26 | Internal Med Progress Note ---
Hospitalist Progress Note - Encounter Date of Encounter: 09/27/18 Time of Encounter: 09:00 - Subjective Interval History: Patient has ventral hernia repair with mesh yesterday. Still nothing by mouth with NG tube low pressure suction. Complain mild abdominal pain. No fever. Vitals are stable. - Exam Vitals: Temp Pulse Resp BP Pulse Ox 98.7 F 108 16 120/84 93 09/27/18 10:26 09/27/18 10:26 09/27/18 10:26 09/27/18 10:09/27/18 10:26 Exam: Pt is AAO x 3, in NAD HEENT: NC/AT, PERRL Neck: Supple, no JVD, no LAD Lungs: CTA b/l Heart: S1S2, RRR Abd: Soft, mild tenderness w/o rebound or guarding Ext: ROM wnl, no pedal edema Neuro: No focal deficit - - Assessment and Plan (1) DVT prophylaxis Current Visit: Yes Status: Acute Assessment and Plan: Subcutaneous heparin (2) Diabetes Current Visit: Yes Status: Acute Assessment and Plan: We will place patient on sliding scale insulin coverage (3) Small bowel obstruction Current Visit: Yes Status: Acute Assessment and Plan: Most likely due to ventral hernia. Had a surgery with repair. Still on NG tube. Will follow surgical consult further recommendation. (4) Ventral hernia with bowel obstruction Current Visit: Yes Status: Acute Assessment and Plan: Management as above (5) GIOVANNY (acute kidney injury) Current Visit: Yes Status: Acute Assessment and Plan: Patient has creatinine level 1.3-1.4, his previous creatinine level is 0.96 in December 2014, no recent lab result available to compare. - Has history of diabetes, has a recent small bowel obstruction with nausea and vomiting, GIOVANNY due to dehydration versus CKD - Continue hydrate patient with IV fluid - Avoid nephrotoxic medications - Closely monitor renal function (6) Hyponatremia Current Visit: Yes Status: Acute Assessment and Plan: Resolved after hydration. Consider hypervolemic hyponatremia caused by nausea and vomiting. DVT Prophylaxis: Heparin sc - Time Spent with Patient Total time spent is greater than 50% in coordination of care (as documented) at patient's floor/unit and/or counseling patient: 30 minutes 25 - 35 minutes Plan of Care Discussed with: patient Internal Medicine: Result - Labs CBC & Chem 7: 09/27/18 07:23 09/27/18 07:23 Labs: Short CBC 09/27/18 Range/Units 07:23 WBC 8.9 (4.3-11.1) K/mcL Hgb 16.8 (12.9-16.9) g/dL Hct 48.3 (37.5-50.1) % Plt Count 359 (140-400) K/mcL BMP 09/27/18 07:23 Sodium 136 Potassium 3.9 Chloride 95 L Carbon Dioxide 26 BUN 47 H Creatinine 1.44 H Glucose 250 H Calcium 9.1 - ABG Interpretation ABG results: PT/INR, D-dimer PT 11.5 Seconds (9.4-12.1) 09/25/18 23:13 - VTE Documentation of Mechanical Device: Intermittent pneumatic compression device Consult Discharge Plan - Plan Referrals: NONE,PCP [Primary Care Provider] - (2) Diabetes Qualifiers: Diabetes mellitus type: type 2 Diabetes mellitus termite control service representative insulin use: without termite control service representative use Diabetes mellitus complication status: without complication Qualified Code(s): E11.9 - Type 2 diabetes mellitus without complications
[2018-09-27] MEDS: 0.9 % Sodium Chloride 1,000 ML IVC SCH ×2 (13:21→21:32)
--- NOTE | 2018-09-27 15:13 | Vascular/Endovasc Consult Note ---
Date of Encounter: 09/27/18 Time of Encounter: 15:10 Assessment and Plan (1) Abdominal aortic aneurysm Current Visit: Yes Status: Chronic I have reviewed the images and there are changes of the infrarenal aorta dating back at least until 2014. This is a very small process and completely asymptomatic. I reassured the patient that no intervention is necessary to this time. I suggested that he have a follow-up CT scan however his next CT scan should be done under a vascular protocol with a CTA. This should be performed in 2 years with follow-up in the outpatient clinic. There is no urgency for further workup at this time and there is no limitation in his physical activities. All questions were answered. Qualifiers: Presence of rupture: without rupture Qualified Code(s): I71.4 - Abdominal aortic aneurysm, without rupture (2) Small bowel obstruction Current Visit: Yes Status: Acute Patient is recovering well following emergency herniorrhaphy yesterday. - History of Present Illness Consult date: 09/27/18 Requesting physician: Ludivina Yoon Consult reason: Abnormal CAT scan of aorta Chief complaint: Abdominal pain History of present illness: Mr. العراقي is a 63 year old male Was admitted with small bowel obstruction. He had a known ventral hernia. He was taken to the operating room yesterday with Dr. Richards for repair of the ventral hernia and release of the small bowel obstruction. As part of his evaluation he underwent a CT scan over the weekend prior to surgery. This demonstrated an abnormality with either an area of small saccular aneurysmal degeneration or a left lateral ulceration on the distal infrarenal abdominal aorta. This area is completely asymptomatic. There is no history of trauma to this region. There is no family history of aneurysmal disease. The patient however has a multifactorial risk factor for vascular disease. He has a history of ongoing tobacco abuse, diabetes, hypertension, coronary artery disease, and is status post a myocardial infarction and coronary stent angioplasty. I have personally reviewed the CT scan performed immediately prior to his operation as well as a CT scan performed approximately one week earlier. In addition for comparison purposes I reviewed the CT scan images performed in 2015. Past Med Surg Social Fam HX - Past Medical History Medical history: coronary artery disease, diabetes, hypertension, myocardial infarction, other Additional medical history: CT with stents Psychiatric history: no psych history - Past Surgical History Surgical History: appendectomy, cholecystectomy, herniorrhaphy (Ventral herniorrhaphy with mesh placement) - Social History Smoking Status: Current every day smoker Smokeless Tobacco Status: No Alcohol use: none Drug use: none Medications and Allergies Aspirin [Lo-Dose Aspirin EC] 81 mg PO DAILY 05/24/18 [History] Carvedilol [Coreg] 6.25 mg PO BID 05/24/18 [History] Clopidogrel [Plavix] 75 mg PO DAILY 05/24/18 [History] Famotidine [Pepcid] 40 mg PO DAILY 05/24/18 [History] Glimepiride [Amaryl] 2 mg PO DAILY 05/24/18 [History] Isosorbide MONOnitrate (24 HR) [Imdur] 60 mg PO DAILY 05/24/18 [History] Metformin HCl [Fortamet] 500 mg PO QID 05/24/18 [History] Simvastatin [Zocor] 40 mg PO HS 05/24/18 [History] SitaGLIPtin [Januvia] 100 mg PO DAILY 05/24/18 [History] Allergy/AdvReac Type Severity Reaction Status Date / Time No Known Allergies Allergy Verified 09/27/18 09:51 All Systems Review: The remainder of the systems were reviewed and are negative Exam General: Present: Conversant, No Apparent Distress, Well developed, Well nourished HEENT: Present: Atraumatic, Normocephaly, Other (Patient has a nasogastric tube in place) Neck: Absent: JVD, Left Carotid bruit, Right Carotid bruit, Midline deformity, Tracheal deviation Cardiac: Present: Reg Rate and Rhythm, Normal S1 and S2, No Murmur. Absent: Irregular Rhythm Lungs: Present: Normal Breath Sounds, No Wheeze, Rales, Rhonchi Neuro: Present: Alert and responsive, No focal deficits noted, Cranial nerves grossly intact, Motor nerves grossly intact, Sensory nerves grossly intact Abdomen: Present: Soft, Other (Patient has typical postoperative surgical tenderness) Vascular: Present: Normal capillary refill, Pulse, normal. Absent: Cyanosis, Edema Skin: Present: No rashes noted on visualized skin Consult Discharge Plan - Plan Referrals: NONE,PCP [Primary Care Provider] -
[2018-09-28] MEDS: *HR* Metoprolol 5 MG/5 ML VIAL IVP SCH ×4 (00:01→17:13)
[2018-09-28] MEDS: Ondansetron 4 MG/2 ML VIAL IVP PRN ×2 (00:31→13:21)
[2018-09-28] MEDS: Insulin LISPRO 300 UNITS/3 ML VIAL SQ SCH ×4 (00:36→17:14)
[2018-09-28] MEDS: *HR* Heparin 5,000 UNIT/ML VIAL SQ SCH ×2 (05:27→17:12)
[2018-09-28 07:18] LABS: Basophils % 0.4 %; Eosinophils % 0.1 %; Hematocrit 43.1 % (37.5-50.1); Immature Granulocytes % 0.8 % (0-4); Lymphocytes # 1.5 K/mcL (0.6-4.6); Lymphocytes % 17.3 %; Mean Corpuscular HGB Conc 33.6 g/dL (31.6-35.5); Mean Corpuscular Hemoglobin 30.1 pg (28.0-33.3); Mean Corpuscular Volume 89.4 fL (83.0-100.0); Mean Platelet Volume 9.9 fL (9.4-12.4); Monocytes # 1.4 K/mcL (0.0-1.3); Monocytes % 16.1 %; Neutrophils # 5.6 K/mcL (1.6-8.9); Platelet Count 362 K/mcL (140-400); Red Blood Count 4.82 M/mcL (4.19-5.50); Segmented Neutrophils % 65.3 %
[2018-09-28 07:22] LABS: Hemoglobin 14.5 g/dL (12.9-16.9)
[2018-09-28 07:38] LABS: BUN/Creatinine Ratio 37 (6-26); Blood Urea Nitrogen 51 mg/dL (8-23); Carbon Dioxide 29 mEq/L (23-29); Chloride 98 mEq/L (98-107); Glucose 212 mg/dL (70-105); Magnesium 2.8 mg/dL (1.6-2.6); Osmolality,Calculated 312 (280-300); Potassium 3.5 mEq/L (3.5-5.1); Sodium 141 mEq/L (136-145); eGFR For Non-African Americans 52 (> 60)
--- NOTE | 2018-09-28 08:02 | General Surgery Progress Note ---
Date of Encounter: 09/28/18 Time of Encounter: 06:15 - Assessment and Plan (1) Incisional hernia with obstruction but no gangrene Current Visit: Yes Status: Acute POD#2 incisional hernia repair with mesh Abdomen is soft with bowel sounds present. Incision site is clean and dry. Wound drain total output 360ml. Continue NPO. Discontinue NG tube. Awaiting bowel function. Continue to monitor. Subjective Narrative: Patient seen and examined. No acute events overnight. Patient is resting comfortably in bed. Patient is postop day 2 from repair of incisional hernia with mesh. Reports some pain at surgical site, unchanged. Reports throat is sore from NG tube. Reports nausea. Passing flatus, denies bowel movement. Denies fever. Denies any other complaints. Objective Vital Signs - Last 8 Hours Temp Pulse Resp BP Pulse Ox 09/28/18 06:40 99.3 F 96 16 119/75 96 09/28/18 04:30 98.8 F 101 15 109/70 93 Intake and Output 09/27/18 09/28/18 09/28/18 23:59 07:59 15:59 Intake Total 1999 0 / 0 Output Total 1590 / 1590 630 / 630 Balance 410 / 410 -630 / -630 Intake: IV Fluids 1999 0.9 % Sodium Chloride 1,000 ML 1999 @ 100 mls/hr IVC .Q10H [facility] Rx#: [id number] Oral 0 / 0 0 / 0 Output: Urine 0 / 0 100 / 100 Gastric Drainage 1350 / 1350 450 / 450 Wound Drainage 240 / 240 80 / 80 Right Abdomen 240 / 240 80 / 80 Other: Meal npo Percent of Meal Consumed 0% Weight 95.6 kg Blood Glucose* 225 194 Patient Weight 09/28/18 23:59 Weight 95.6 kg - Additional Exam VITAL SIGNS: Reviewed. See [facility] GENERAL: In no apparent distress. Nasogastric tube in place, draining dark brown fluid. HEENT: Normocephalic, atraumatic, pupils are equal and reactive, extraocular motions intact, oral mucosa is pink and dry. CHEST/RESPIRATORY: The thorax is free from signs of trauma. Lung sounds: [clear to auscultation, normal respiratory effort] CARDIAC: Regular rate and rhythm. Normal S1 and S2, without murmurs, gallops, or rubs. VASCULAR: No Edema. ABDOMEN: Soft, expected postoperative tenderness, bowel sounds present, nondistended INCISION: Surgical incision is clean, dry, and intact. There are no signs of cellulitis or infection noted. WOUNDS/DRAINS: RLQ YULI drain site isWNL. There is sanguinous drainage in the YULI bulb MUSCULOSKELETAL: Good range of motion of all major joints. Extremities without clubbing, cyanosis or edema. NEUROLOGIC EXAM: Alert and oriented x 3. Speech normal. Follows commands. PSYCHIATRIC: Mood normal. SKIN: No rash or lesions. - Labs 09/28/18 06:50 09/28/18 06:50 Diabetes panel 09/28/18 Range/Units 06:50 Sodium 141 (136-145) mEq/L Potassium 3.5 (3.5-5.1) mEq/L Chloride 98 (98-107) mEq/L Carbon Dioxide 29 (23-29) mEq/L BUN 51 H (8-23) mg/dL Creatinine 1.38 H (0.70-1.30) mg/dL Glucose 212 H (70-105) mg/dL Calcium 9.0 (8.6-10.3) mg/dL Calcium panel 09/28/18 Range/Units 06:50 Calcium 9.0 (8.6-10.3) mg/dL Pituitary panel 09/28/18 Range/Units 06:50 Sodium 141 (136-145) mEq/L Potassium 3.5 (3.5-5.1) mEq/L Chloride 98 (98-107) mEq/L Carbon Dioxide 29 (23-29) mEq/L BUN 51 H (8-23) mg/dL Creatinine 1.38 H (0.70-1.30) mg/dL Glucose 212 H (70-105) mg/dL Calcium 9.0 (8.6-10.3) mg/dL Adrenal panel 09/28/18 Range/Units 06:50 Sodium 141 (136-145) mEq/L Potassium 3.5 (3.5-5.1) mEq/L Chloride 98 (98-107) mEq/L Carbon Dioxide 29 (23-29) mEq/L BUN 51 H (8-23) mg/dL Creatinine 1.38 H (0.70-1.30) mg/dL Glucose 212 H (70-105) mg/dL Calcium 9.0 (8.6-10.3) mg/dL - VTE Documentation of Mechanical Device: Intermittent pneumatic compression device Consult Discharge Plan - Plan Referrals: NONE,PCP [Primary Care Provider] -
[2018-09-28] MEDS: 0.9 % Sodium Chloride 1,000 ML IVC SCH ×2 (09:46→21:05)
--- NOTE | 2018-09-28 16:01 | Internal Med Progress Note ---
Hospitalist Progress Note - Encounter Date of Encounter: 09/28/18 Time of Encounter: 09:00 - Subjective Interval History: Patient has ventral hernia repair with mesh. POD#2. Complain mild abdominal pain. Has passed gas. Vitals are stable. - Exam Vitals: Temp Pulse Resp BP Pulse Ox 97.7 F 91 18 113/77 95 09/28/18 14:37 09/28/18 14:37 09/28/18 14:37 09/28/18 14:37 09/28/18 14:37 Exam: Pt is AAO x 3, in NAD HEENT: NC/AT, PERRL Neck: Supple, no JVD, no LAD Lungs: CTA b/l Heart: S1S2, RRR Abd: Soft, mild tenderness w/o rebound or guarding, BS present. Ext: ROM wnl, no pedal edema Neuro: No focal deficit - - Assessment and Plan (1) DVT prophylaxis Current Visit: Yes Status: Acute Assessment and Plan: Subcutaneous heparin (2) Diabetes Current Visit: Yes Status: Acute Assessment and Plan: We will place patient on sliding scale insulin coverage (3) Small bowel obstruction Current Visit: Yes Status: Acute Assessment and Plan: Most likely due to ventral hernia. Had a surgery with repair. Will follow surgical consult further recommendation. (4) Ventral hernia with bowel obstruction Current Visit: Yes Status: Acute Assessment and Plan: Management as above (5) GIOVANNY (acute kidney injury) Current Visit: Yes Status: Acute Assessment and Plan: Patient has creatinine level 1.3-1.4, his previous creatinine level is 0.96 in December 2014, no recent lab result available to compare. - Has history of diabetes, has a recent small bowel obstruction with nausea and vomiting, GIOVANNY due to dehydration versus CKD - Continue hydrate patient with IV fluid - Avoid nephrotoxic medications - Closely monitor renal function (6) Hyponatremia Current Visit: Yes Status: Acute Assessment and Plan: Resolved after hydration. Consider hypervolemic hyponatremia caused by nausea and vomiting. DVT Prophylaxis: Heparin sc - Time Spent with Patient Total time spent is greater than 50% in coordination of care (as documented) at patient's floor/unit and/or counseling patient: 30 minutes 25 - 35 minutes Plan of Care Discussed with: patient Internal Medicine: Result - Labs CBC & Chem 7: 09/28/18 06:50 09/28/18 06:50 Labs: Short CBC 09/28/18 Range/Units 06:50 WBC 8.6 (4.3-11.1) K/mcL Hgb 14.5 D (12.9-16.9) g/dL Hct 43.1 (37.5-50.1) % Plt Count 362 (140-400) K/mcL Neutrophils # 5.6 (1.6-8.9) K/mcL BMP 09/28/18 06:50 Sodium 141 Potassium 3.5 Chloride 98 Carbon Dioxide 29 BUN 51 H Creatinine 1.38 H Glucose 212 H Calcium 9.0 - ABG Interpretation ABG results: PT/INR, D-dimer PT 11.5 Seconds (9.4-12.1) 09/25/18 23:13 - VTE Documentation of Mechanical Device: Intermittent pneumatic compression device Consult Discharge Plan - Plan Referrals: NONE,PCP [Primary Care Provider] - (2) Diabetes Qualifiers: Diabetes mellitus type: type 2 Diabetes mellitus penitentiary insulin use: without superintendent [employer] use Diabetes mellitus complication status: without complication Qualified Code(s): E11.9 - Type 2 diabetes mellitus without complications
[2018-09-28] MEDS: Famotidine 20 MG/2 ML VIAL IVP SCH (17:14)
[2018-09-28] MEDS: OXYCODONE Oral CONC 10 MG/0.5 ML ORAL.SYG SL PRN (23:23)
[2018-09-29] MEDS: Insulin LISPRO 300 UNITS/3 ML VIAL SQ SCH ×5 (00:15→22:52)
[2018-09-29] MEDS: *HR* Metoprolol 5 MG/5 ML VIAL IVP SCH ×3 (00:18→12:54)
[2018-09-29 04:05] LABS: Basophils % 0.5 %; Eosinophils # 0.1 K/mcL (0.0-0.6); Eosinophils % 1.3 %; Hematocrit 37.4 % (37.5-50.1); Immature Granulocytes % 1.1 % (0-4); Lymphocytes % 24.6 %; Mean Corpuscular HGB Conc 33.7 g/dL (31.6-35.5); Mean Corpuscular Hemoglobin 30.9 pg (28.0-33.3); Mean Corpuscular Volume 91.7 fL (83.0-100.0); Mean Platelet Volume 9.8 fL (9.4-12.4); Monocytes # 1.3 K/mcL (0.0-1.3); Monocytes % 16.2 %; Neutrophils # 4.5 K/mcL (1.6-8.9); Platelet Count 295 K/mcL (140-400); Red Blood Count 4.08 M/mcL (4.19-5.50); Red Cell Distribution Width 13.2 % (11.5-14.5); Segmented Neutrophils % 56.3 %
[2018-09-29 04:06] LABS: Hemoglobin 12.6 g/dL (12.9-16.9)
[2018-09-29 04:21] LABS: BUN/Creatinine Ratio 38 (6-26); Blood Urea Nitrogen 45 mg/dL (8-23); Calcium 8.5 mg/dL (8.6-10.3); Carbon Dioxide 29 mEq/L (23-29); Chloride 103 mEq/L (98-107); Glucose 159 mg/dL (70-105); Magnesium 2.5 mg/dL (1.6-2.6); Osmolality,Calculated 313 (280-300); Potassium 3.7 mEq/L (3.5-5.1); Sodium 144 mEq/L (136-145); eGFR For Non-African Americans > 60 (> 60)
[2018-09-29] MEDS: Famotidine 20 MG/2 ML VIAL IVP SCH (05:32)
[2018-09-29] MEDS: *HR* Heparin 5,000 UNIT/ML VIAL SQ SCH ×2 (05:32→17:49)
[2018-09-29] MEDS: 0.9 % Sodium Chloride 1,000 ML IVC SCH ×2 (07:35→20:13)
--- NOTE | 2018-09-29 09:33 | General Surgery Progress Note ---
<Lexi Zheng - Last Filed: 09/29/18 10:14> Date of Encounter: 09/29/18 Time of Encounter: 06:40 - Assessment and Plan (1) Incisional hernia with obstruction but no gangrene Current Visit: Yes Status: Acute POD#3 incisional hernia repair with mesh on 09/26/18. Abdomen is soft with bowel sounds present. Incision site is clean and dry. Wound drain total output 760ml. Yesterday, drainage was dark red. Today, brighter red. Decrease of Hb from 14.5 to 12.6. Recheck Hb tomorrow morning. Advance to clear liquid diet. Continue to monitor. Subjective Narrative: Patient seen and examined. No acute events overnight. Patient is sitting in chair. Patient is postop day 3 from repair of incisional hernia with mesh. Nurse reported that there was a lot of dark red drainage from YULI. Today, there is brighter red drainage in bulb. Patient admits dizziness with standing, but states this is not new and is improving. Reports some pain at surgical site, unchanged. Passing flatus, denies bowel movement. Patient states hes rinsing mouth with water to keep it moist. States he tolerated ice chips well yesterday and would like to advance diet. Denies fever, nausea, abdominal pain. Denies any other complaints. Objective Vital Signs - Last 8 Hours Temp Pulse Resp BP Pulse Ox 09/29/18 07:04 98.3 F 82 15 123/63 98 09/29/18 03:40 97.9 F 84 17 145/82 96 Intake and Output 09/28/18 09/29/18 09/29/18 23:59 07:59 15:59 Intake Total 1060 / 1060 1000 / 1000 Output Total 120 / 120 60 / 60 Balance 940 / 940 940 / 940 Intake: IV Fluids 1000 / 1000 1000 / 1000 0.9 % Sodium Chloride 1,000 ML 1000 / 1000 1000 / 1000 @ 100 mls/hr IVC .Q10H [facility] Rx#: [id number] Oral 60 / 60 0 / 0 Output: Urine 0 / 0 0 / 0 Wound Drainage 120 / 120 60 / 60 Right Abdomen 120 / 120 60 / 60 Other: # Voids 1 # Bowel Movements 0 0 Weight 95.8 kg Blood Glucose* 185 141 Patient Weight 09/29/18 23:59 Weight 95.8 kg - Additional Exam VITAL SIGNS: Reviewed. See [facility] GENERAL: In no apparent distress. HEENT: Normocephalic, atraumatic, pupils are equal and reactive, extraocular motions intact, oral mucosa is pink and moist. CHEST/RESPIRATORY: The thorax is free from signs of trauma. Lung sounds: [clear to auscultation, normal respiratory effort] CARDIAC: Regular rate and rhythm. Normal S1 and S2, without murmurs, gallops, or rubs. VASCULAR: No Edema. ABDOMEN: Soft, expected postoperative tenderness, normal bowel sounds, nondistended INCISION: Surgical incision is clean, dry, and intact. There are no signs of cellulitis or infection noted. WOUNDS/DRAINS: RLQ YULI drain site isWNL. There is sanguinous drainage in the YULI bulb MUSCULOSKELETAL: Good range of motion of all major joints. Extremities without clubbing, cyanosis or edema. NEUROLOGIC EXAM: Alert and oriented x 3. Speech normal. Follows commands. PSYCHIATRIC: Mood normal. SKIN: No rash or lesions. - Labs 09/29/18 03:36 09/29/18 03:36 Diabetes panel 09/29/18 Range/Units 03:36 Sodium 144 (136-145) mEq/L Potassium 3.7 (3.5-5.1) mEq/L Chloride 103 (98-107) mEq/L Carbon Dioxide 29 (23-29) mEq/L BUN 45 H (8-23) mg/dL Creatinine 1.18 (0.70-1.30) mg/dL Glucose 159 H (70-105) mg/dL Calcium 8.5 L (8.6-10.3) mg/dL Calcium panel 09/29/18 Range/Units 03:36 Calcium 8.5 L (8.6-10.3) mg/dL Pituitary panel 09/29/18 Range/Units 03:36 Sodium 144 (136-145) mEq/L Potassium 3.7 (3.5-5.1) mEq/L Chloride 103 (98-107) mEq/L Carbon Dioxide 29 (23-29) mEq/L BUN 45 H (8-23) mg/dL Creatinine 1.18 (0.70-1.30) mg/dL Glucose 159 H (70-105) mg/dL Calcium 8.5 L (8.6-10.3) mg/dL Adrenal panel 09/29/18 Range/Units 03:36 Sodium 144 (136-145) mEq/L Potassium 3.7 (3.5-5.1) mEq/L Chloride 103 (98-107) mEq/L Carbon Dioxide 29 (23-29) mEq/L BUN 45 H (8-23) mg/dL Creatinine 1.18 (0.70-1.30) mg/dL Glucose 159 H (70-105) mg/dL Calcium 8.5 L (8.6-10.3) mg/dL - VTE Documentation of Mechanical Device: Intermittent pneumatic compression device Consult Discharge Plan - Plan Referrals: [facility] [place],Cem Carrasco MD [Non-Partnered Physician] - <Viral Richards T - Last Filed: 09/29/18 15:18> Date of Encounter: 09/29/18 - Assessment and Plan (1) Incisional hernia with obstruction but no gangrene Current Visit: Yes Status: Acute Objective Vital Signs - Last 8 Hours Temp Pulse Resp BP Pulse Ox 09/29/18 10:37 98.6 F 102 15 109/68 96 Intake and Output 09/28/18 09/29/18 09/29/18 23:59 07:59 15:59 Intake Total 1060 / 1060 1000 / 1000 Output Total 120 / 120 60 / 60 60 / 60 Balance 940 / 940 940 / 940 -60 / -60 Intake: IV Fluids 1000 / 1000 1000 / 1000 0.9 % Sodium Chloride 1,000 ML 1000 / 1000 1000 / 1000 @ 100 mls/hr IVC .Q10H [facility] Rx#: [id number] Oral 60 / 60 0 / 0 Output: Urine 0 / 0 0 / 0 Wound Drainage 120 / 120 60 / 60 60 / 60 Right Abdomen 120 / 120 60 / 60 60 / 60 Other: # Voids 1 1 # Bowel Movements 0 0 Weight 95.8 kg Blood Glucose* 185 141 200 Patient Weight 09/29/18 23:59 Weight 95.8 kg - Labs 09/29/18 03:36 09/29/18 03:36 Diabetes panel 09/29/18 Range/Units 03:36 Sodium 144 (136-145) mEq/L Potassium 3.7 (3.5-5.1) mEq/L Chloride 103 (98-107) mEq/L Carbon Dioxide 29 (23-29) mEq/L BUN 45 H (8-23) mg/dL Creatinine 1.18 (0.70-1.30) mg/dL Glucose 159 H (70-105) mg/dL Calcium 8.5 L (8.6-10.3) mg/dL Calcium panel 09/29/18 Range/Units 03:36 Calcium 8.5 L (8.6-10.3) mg/dL Pituitary panel 09/29/18 Range/Units 03:36 Sodium 144 (136-145) mEq/L Potassium 3.7 (3.5-5.1) mEq/L Chloride 103 (98-107) mEq/L Carbon Dioxide 29 (23-29) mEq/L BUN 45 H (8-23) mg/dL Creatinine 1.18 (0.70-1.30) mg/dL Glucose 159 H (70-105) mg/dL Calcium 8.5 L (8.6-10.3) mg/dL Adrenal panel 09/29/18 Range/Units 03:36 Sodium 144 (136-145) mEq/L Potassium 3.7 (3.5-5.1) mEq/L Chloride 103 (98-107) mEq/L Carbon Dioxide 29 (23-29) mEq/L BUN 45 H (8-23) mg/dL Creatinine 1.18 (0.70-1.30) mg/dL Glucose 159 H (70-105) mg/dL Calcium 8.5 L (8.6-10.3) mg/dL - Attending Attestation I examined this patient and my medical decision-making was reviewed with the Resident Physician. I agree with the documented findings, disposition and treatment plan as described except to the extent set forth below. The patient is seen and evaluated with rest and on morning rounds. He is doing quite well pain control is excellent. He is starting to pass flatus. We will advance his diet. His Lucas-Bernal drain continues to have a high volume of sanguinous drainage this should stop, however, if the drainage persists we may need to stop his heparin. We will follow hemoglobin and hematocrit Viral Richrads MD FACS
--- NOTE | 2018-09-29 13:06 | Internal Med Progress Note ---
Hospitalist Progress Note - Encounter Date of Encounter: 09/29/18 Time of Encounter: 09:00 - Subjective Interval History: Patient has ventral hernia repair with mesh. POD#3. Mild abdominal pain, improved. Has passed gas. Diet with clear liquid started per surgery, tolerate well. Vitals are stable. - Exam Vitals: Temp Pulse Resp BP Pulse Ox 98.6 F 102 15 109/68 96 09/29/18 10:37 09/29/18 10:37 09/29/18 10:37 09/29/18 10:37 09/29/18 10:37 Exam: Pt is AAO x 3, in NAD HEENT: NC/AT, PERRL Neck: Supple, no JVD, no LAD Lungs: CTA b/l Heart: S1S2, RRR Abd: Soft, mild tenderness w/o rebound or guarding, BS present. Ext: ROM wnl, no pedal edema Neuro: No focal deficit - - Assessment and Plan (1) DVT prophylaxis Current Visit: Yes Status: Acute Assessment and Plan: Subcutaneous heparin (2) Diabetes Current Visit: Yes Status: Acute Assessment and Plan: We will place patient on sliding scale insulin coverage (3) Small bowel obstruction Current Visit: Yes Status: Acute Assessment and Plan: Most likely due to large ventral hernia. Had a surgery with repair. Will follow surgical consult further recommendation. (4) Ventral hernia with bowel obstruction Current Visit: Yes Status: Acute Assessment and Plan: Management as above (5) GIOVANNY (acute kidney injury) Current Visit: Yes Status: Acute Assessment and Plan: Patient has creatinine level 1.3-1.4, his previous creatinine level is 0.96 in December 2014, no recent lab result available to compare. - Has history of diabetes, has a recent small bowel obstruction with nausea and vomiting, GIOVANNY due to dehydration versus CKD - Continue hydrate patient with IV fluid - Avoid nephrotoxic medications - Closely monitor renal function, Cr 1.18 today. (6) Hyponatremia Current Visit: Yes Status: Acute Assessment and Plan: Resolved after hydration. Consider hypovolemic hyponatremia caused by nausea and vomiting. DVT Prophylaxis: Heparin sc - Time Spent with Patient Total time spent is greater than 50% in coordination of care (as documented) at patient's floor/unit and/or counseling patient: 30 minutes 25 - 35 minutes Plan of Care Discussed with: patient Internal Medicine: Result - Labs CBC & Chem 7: 09/29/18 03:36 09/29/18 03:36 Labs: Short CBC 09/29/18 Range/Units 03:36 WBC 7.9 (4.3-11.1) K/mcL Hgb 12.6 L D (12.9-16.9) g/dL Hct 37.4 L (37.5-50.1) % Plt Count 295 (140-400) K/mcL Neutrophils # 4.5 (1.6-8.9) K/mcL BMP 09/29/18 03:36 Sodium 144 Potassium 3.7 Chloride 103 Carbon Dioxide 29 BUN 45 H Creatinine 1.18 Glucose 159 H Calcium 8.5 L - ABG Interpretation ABG results: PT/INR, D-dimer PT 11.5 Seconds (9.4-12.1) 09/25/18 23:13 - VTE Documentation of Mechanical Device: Intermittent pneumatic compression device Consult Discharge Plan - Plan Referrals: [facility],Cem Carrasco MD [Non-Partnered Physician] - (2) Diabetes Qualifiers: Diabetes mellitus type: type 2 Diabetes mellitus fci insulin use: without fci use Diabetes mellitus complication status: without com plication Qualified Code(s): E11.9 - Type 2 diabetes mellitus without comp lications
[2018-09-29] MEDS: Famotidine 20 MG TABLET PO SCH (17:49)
[2018-09-30 04:11] LABS: Basophils # 0.1 K/mcL (0.0-0.2); Basophils % 0.6 %; Eosinophils # 0.3 K/mcL (0.0-0.6); Eosinophils % 2.6 %; Hematocrit 34.1 % (37.5-50.1); Hemoglobin 11.5 g/dL (12.9-16.9); Immature Granulocytes % 1.4 % (0-4); Lymphocytes # 2.1 K/mcL (0.6-4.6); Lymphocytes % 19.7 %; Mean Corpuscular HGB Conc 33.7 g/dL (31.6-35.5); Mean Corpuscular Hemoglobin 30.9 pg (28.0-33.3); Mean Corpuscular Volume 91.7 fL (83.0-100.0); Mean Platelet Volume 9.9 fL (9.4-12.4); Monocytes % 9.7 %; Platelet Count 295 K/mcL (140-400); Red Blood Count 3.72 M/mcL (4.19-5.50)
[2018-09-30 04:27] LABS: BUN/Creatinine Ratio 22 (6-26); Blood Urea Nitrogen 24 mg/dL (8-23); Calcium 8.4 mg/dL (8.6-10.3); Carbon Dioxide 28 mEq/L (23-29); Chloride 101 mEq/L (98-107); Glucose 153 mg/dL (70-105); Osmolality,Calculated 293 (280-300); Potassium 3.2 mEq/L (3.5-5.1); Sodium 138 mEq/L (136-145); eGFR For Non-African Americans > 60 (> 60)
[2018-09-30] MEDS: *HR* Heparin 5,000 UNIT/ML VIAL SQ SCH ×2 (05:59→17:16)
[2018-09-30] MEDS: Aspirin Enteric Coated 81 MG Tablet PO SCH (08:38)
[2018-09-30] MEDS: Famotidine 20 MG TABLET PO SCH ×2 (08:38→17:06)
[2018-09-30] MEDS: Isosorbide MONOnitrate (24 HR) 60 MG TAB.ER.24H PO SCH (08:38)
[2018-09-30] MEDS: Insulin LISPRO 300 UNITS/3 ML VIAL SQ SCH ×4 (08:39→21:36)
[2018-09-30] MEDS ORDERED: NON-FORMULARY MEDICATION 1 EACH EACH (Famotidine [Pepcid] 40 MG) PO SCH (09:00)
--- NOTE | 2018-09-30 09:06 | General Surgery Progress Note ---
<Brigette Santana - Last Filed: 09/30/18 09:32> Date of Encounter: 09/30/18 Time of Encounter: 07:15 - Assessment and Plan (1) Ventral hernia with bowel obstruction Status: Acute Date of procedure: 09/26/18 Pre-op diagnosis: Incisional hernia and bowel obstruction Post-op diagnosis: same Procedure: Repair of incisional hernia with mesh Implants: symbotex skirted 10 x 15 cm POD #4 as above. He is recovering quite well. His abdominal discomfort is controlled and is having bowel function. He is still having bloody output per his YULI but it is more maroon today. Consideration of local find hematoma versus small vessel bleed. We will continue to closely monitor. Continue heparin at this time Plan: continue supportive care and discomfort management add Percocet for PRN pain control add Colace regular diet ambulate TID out of bed to chair TID continue G.I. and DVT prophylaxis cares per primary team Subjective Patient reports: no new complaints, feels better, still having pain, pain is less, flatus, no bowel movement, afebrile Narrative: denies nausea or vomiting. Endorses appetite Objective Vital Signs - Last 8 Hours Temp Pulse Resp BP Pulse Ox 09/30/18 06:16 98.0 F 73 15 113/79 93 09/30/18 03:16 98 F 83 14 106/73 97 Intake and Output 09/29/18 09/30/18 09/30/18 23:59 07:59 15:59 Intake Total 1000 / 1000 480 / 480 Output Total 30 / 30 80 / 80 60 / 60 Balance 970 / 970 400 / 400 -60 / -60 Intake: IV Fluids 1000 / 1000 0.9 % Sodium Chloride 1,000 ML 1000 / 1000 @ 100 mls/hr IVC .Q10H THU Rx#: [id number] Oral 0 / 0 480 / 480 Output: Wound Drainage 30 / 30 80 / 80 60 / 60 Right Abdomen 30 / 30 80 / 80 60 / 60 Other: Stool Consistency liquid # Voids 1 1 # Bowel Movements 0 1 Blood Glucose* 114 152 - General physical appearance no distress, no pain - Eyes normal ocular movement - ENT normal nares, normal mucosa, atraumatic, normocephalic - Neck Neck exam: trachea midline - Respiratory normal expansion, normal respiratory effort, clear to auscultation - Cardiovascular Cardiovascular exam: Present: RRR - Abdomen Abdomen: Present: bowel sounds present, soft, tender (expected postoperative tenderness), wound (YULI is with maroon output; site WNL) Hernia: none - Incision Incision: Present: clean and dry, intact - Integumentary no rash - Neurologic normal coordination, normal sensation - Musculoskeletal normal posture - Psychiatric oriented to time, oriented to person, oriented to place, speech is normal, memory intact - Labs 09/30/18 03:33 09/30/18 03:33 Diabetes panel 09/30/18 Range/Units 03:33 Sodium 138 (136-145) mEq/L Potassium 3.2 L (3.5-5.1) mEq/L Chloride 101 (98-107) mEq/L Carbon Dioxide 28 (23-29) mEq/L BUN 24 H (8-23) mg/dL Creatinine 1.09 (0.70-1.30) mg/dL Glucose 153 H (70-105) mg/dL Calcium 8.4 L (8.6-10.3) mg/dL Calcium panel 09/30/18 Range/Units 03:33 Calcium 8.4 L (8.6-10.3) mg/dL Pituitary panel 09/30/18 Range/Units 03:33 Sodium 138 (136-145) mEq/L Potassium 3.2 L (3.5-5.1) mEq/L Chloride 101 (98-107) mEq/L Carbon Dioxide 28 (23-29) mEq/L BUN 24 H (8-23) mg/dL Creatinine 1.09 (0.70-1.30) mg/dL Glucose 153 H (70-105) mg/dL Calcium 8.4 L (8.6-10.3) mg/dL Adrenal panel 09/30/18 Range/Units 03:33 Sodium 138 (136-145) mEq/L Potassium 3.2 L (3.5-5.1) mEq/L Chloride 101 (98-107) mEq/L Carbon Dioxide 28 (23-29) mEq/L BUN 24 H (8-23) mg/dL Creatinine 1.09 (0.70-1.30) mg/dL Glucose 153 H (70-105) mg/dL Calcium 8.4 L (8.6-10.3) mg/dL - VTE Documentation of Mechanical Device: Intermittent pneumatic compression device Consult Discharge Plan - Plan Instructions: Open Herniorrhaphy (DC) Additional Instructions: General Surgical Discharge Instructions 1. No pushing, pulling, or lifting greater than 15 lbs for 6 weeks. 2. You may shower beginning today, but no tub baths, soaking, or swimming for 2 weeks. 3. You may resume driving when you are off narcotics and are safe to react in a car. 4. Take ibuprofen every 8 hours for discomfort. If this does not relieve disc omfort, you may take the as needed Percocet. Take narcotics as directed. Do not take more narcotics then directed and do not share your narcotics with any other person. Do not drink alcohol while on narcotics. 5. Take stool softeners (Colace) or a water based laxative (Miralax) while taking narcotics. You may hold for loose stools. 6. Report any fevers greater than 100.5F, increase abdominal discomfort, drainage that looks like pus, increased redness or pain at the surgical site, or any vomiting. 7. Report any pain in the calves, shortness of breath, or rapid heartbeat. 8. Follow-up in the office as directed. 9. If you were prescribed antibiotics, do not stop them without talking to your provider. Daily YULI Drain Care: 1. Remove dressings. Shower with antibacterial soap. 2. Do not let the YULI drain dangle from your body. Use the safety pin to secure to your clothing. Secure the YULI to a lanyard or other type of long necklace when you shower. 3. Replace drain gauze and taped to secure. 4. Record the output from your YULI bulb (at least once daily) on the form provided and bring this with you to your follow-up appointment. 5. Keep the YULI drain to suction (squeeze the bulb and replace the cap while squeezing). 6. Strip the lines twice daily (hold onto the line as close to the body as you can, then with the other hand push the contents of the line into the YULI bulb). Referrals: Dr. Carrizales [Other] - 10/04/18 9:00 am (Previously set up appointment for patient regular check up.) Kiesha Duncan CNP [Advanced Practice Nurse] - 10/08/18 9:00 am Cem Carrizales MD [Non-Partnered Physician] - 10/11/18 3:00 pm Prescriptions: Ondansetron ODT [Zofran ODT] 4 mg SL Q6HR PRN #15 tab.rapdis PRN Reason: Nausea Docusate Sodium [Colace] 100 mg PO BID #30 capsule RX: Ibuprofen 800 mg PO Q8H #42 tablet RX: Oxycodone HCl/Acetaminophen [Percocet 5-325 mg Tablet] 1 each PO Q6H PRN 7 Days #28 tablet PRN Reason: Breakthrough Pain <Maurice,Viral T - Last Filed: 10/01/18 15:01> Date of Encounter: 09/30/18 - Assessment and Plan (1) Incisional hernia with obstruction but no gangrene Status: Acute Objective Intake and Output 09/30/18 10/01/18 10/01/18 23:59 07:59 15:59 Intake Total 1600 / 1600 480 / 480 Output Total 50 / 50 80 / 80 10 / 10 Balance 1550 / 1550 -80 / -80 470 / 470 Intake: IV Fluids 1000 / 1000 Oral 600 / 600 480 / 480 Output: Urine 0 / 0 Wound Drainage 50 / 50 80 / 80 10 / 10 Right Abdomen 50 / 50 80 / 80 10 / 10 Other: Meal Dinner Breakfast Percent of Meal Consumed 90% 100% Stool Size Small Stool Consistency soft formed # Voids 1 1 # Bowel Movements 0 0 0 Blood Glucose* 206 172 - Labs 10/01/18 02:54 10/01/18 02:54 Diabetes panel 10/01/18 Range/Units 02:54 Sodium 136 (136-145) mEq/L Potassium 3.6 (3.5-5.1) mEq/L Chloride 105 (98-107) mEq/L Carbon Dioxide 27 (23-29) mEq/L BUN 16 (8-23) mg/dL Creatinine 1.06 (0.70-1.30) mg/dL Glucose 219 H (70-105) mg/dL Calcium 7.7 L (8.6-10.3) mg/dL Calcium panel 10/01/18 Range/Units 02:54 Calcium 7.7 L (8.6-10.3) mg/dL Pituitary panel 10/01/18 Range/Units 02:54 Sodium 136 (136-145) mEq/L Potassium 3.6 (3.5-5.1) mEq/L Chloride 105 (98-107) mEq/L Carbon Dioxide 27 (23-29) mEq/L BUN 16 (8-23) mg/dL Creatinine 1.06 (0.70-1.30) mg/dL Glucose 219 H (70-105) mg/dL Calcium 7.7 L (8.6-10.3) mg/dL Adrenal panel 10/01/18 Range/Units 02:54 Sodium 136 (136-145) mEq/L Potassium 3.6 (3.5-5.1) mEq/L Chloride 105 (98-107) mEq/L Carbon Dioxide 27 (23-29) mEq/L BUN 16 (8-23) mg/dL Creatinine 1.06 (0.70-1.30) mg/dL Glucose 219 H (70-105) mg/dL Calcium 7.7 L (8.6-10.3) mg/dL - Attending Attestation I have personally performed a face to face evaluation on this patient. I have reviewed and agree with the care plan. History and Exam by me shows: The patient is seen and evaluated on morning rounds with the clinical nurse practitioner. His Lucas-Bernal drainage remains sanguinous however, the volume is dropping. We will advance his diet. Viral Richards MD FACS
[2018-09-30] MEDS ORDERED: *HR* OxyCODONE/APAP 5/325 TABLET PO PRN (09:07)
[2018-09-30] MEDS ORDERED: OXYCODONE Oral CONC 10 MG/0.5 ML ORAL.SYG SL PRN (09:08)
--- NOTE | 2018-09-30 14:18 | Internal Med Progress Note ---
Hospitalist Progress Note - Encounter Date of Encounter: 09/30/18 Time of Encounter: 09:00 - Subjective Interval History: Patient has ventral hernia repair with mesh. POD#4. Denies abdominal pain, nausea or vomiting. Has passed gas. Tolerated regular diet well. - Exam Vitals: Temp Pulse Resp BP Pulse Ox 98.5 F 85 17 103/66 97 09/30/18 10:08 09/30/18 10:08 09/30/18 10:08 09/30/18 10:08 09/30/18 10:08 Exam: Pt is AAO x 3, in NAD HEENT: NC/AT, PERRL Neck: Supple, no JVD, no LAD Lungs: CTA b/l Heart: S1S2, RRR Abd: Soft, mild tenderness w/o rebound or guarding, BS present. Ext: ROM wnl, no pedal edema Neuro: No focal deficit - - Assessment and Plan (1) DVT prophylaxis Current Visit: Yes Status: Acute Assessment and Plan: Subcutaneous heparin (2) Diabetes Current Visit: Yes Status: Acute Assessment and Plan: We will place patient on sliding scale insulin coverage (3) Small bowel obstruction Current Visit: Yes Status: Acute Assessment and Plan: Most likely due to large ventral hernia. Had a surgery with repair. Will follow surgical consult further recommendation. - Slightly decreased hemoglobin probably due to bloody YULI drain. Continue closely monitoring (4) Ventral hernia with bowel obstruction Current Visit: Yes Status: Acute Assessment and Plan: Management as above (5) GIOVANNY (acute kidney injury) Current Visit: Yes Status: Acute Assessment and Plan: Patient has creatinine level 1.3-1.4, his previous creatinine level is 0.96 in December 2014, no recent lab result available to compare. - Has history of diabetes, has a recent small bowel obstruction with nausea and vomiting, GIOVANNY due to dehydration versus CKD - Avoid nephrotoxic medications - Closely monitor renal function, Cr 1.09 today. (6) Hyponatremia Current Visit: Yes Status: Acute Assessment and Plan: Resolved after hydration. Consider hypovolemic hyponatremia caused by nausea and vomiting. DVT Prophylaxis: Heparin sc - Time Spent with Patient Total time spent is greater than 50% in coordination of care (as documented) at patient's floor/unit and/or counseling patient: 30 min 25 - 35 minutes Plan of Care Discussed with: patient Internal Medicine: Result - Labs CBC & Chem 7: 09/30/18 03:33 09/30/18 03:33 Labs: Short CBC 09/30/18 Range/Units 03:33 WBC 10.7 (4.3-11.1) K/mcL Hgb 11.5 L (12.9-16.9) g/dL Hct 34.1 L (37.5-50.1) % Plt Count 295 (140-400) K/mcL Neutrophils # 7.0 (1.6-8.9) K/mcL BMP 09/30/18 03:33 Sodium 138 Potassium 3.2 L Chloride 101 Carbon Dioxide 28 BUN 24 H Creatinine 1.09 Glucose 153 H Calcium 8.4 L - ABG Interpretation ABG results: PT/INR, D-dimer PT 11.5 Seconds (9.4-12.1) 09/25/18 23:13 - VTE Documentation of Mechanical Device: Intermittent pneumatic compression device Consult Discharge Plan - Plan Instructions: Open Herniorrhaphy (DC) Additional Instructions: General Surgical Discharge Instructions 1. No pushing, pulling, or lifting greater than 15 lbs for 6 weeks. 2. You may shower beginning today, but no tub baths, soaking, or swimming for 2 weeks. 3. You may resume driving when you are off narcotics and are safe to react in a car. 4. Take ibuprofen every 8 hours for discomfort. If this does not relieve discomfort, you may take the as needed Percocet. Take narcotics as directed. Do not take more narcotics then directed and do not share your narcotics with any other person. Do not drink alcohol while on narcotics. 5. Take stool softeners (Colace) or a water based laxative (Miralax) while taking narcotics. You may hold for loose stools. 6. Report any fevers greater than 100.5F, increase abdominal discomfort, drainage that looks like pus, increased redness or pain at the surgical site, or any vomiting. 7. Report any pain in the calves, shortness of breath, or rapid heartbeat. 8. Follow-up in the office as directed. 9. If you were prescribed antibiotics, do not stop them without talking to your provider. Daily YULI Drain Care: 1. Remove dressings. Shower with antibacterial soap. 2. Do not let the YULI drain dangle from your body. Use the safety pin to secure to your clothing. Secure the YULI to a lanyard or other type of long necklace when you shower. 3. Replace drain gauze and taped to secure. 4. Record the output from your YULI bulb (at least once daily) on the form provided and bring this with you to your follow-up appointment. 5. Keep the YULI drain to suction (squeeze the bulb and replace the cap while squeezing). 6. Strip the lines twice daily (hold onto the line as close to the body as you can, then with the other hand push the contents of the line into the YULI bulb). Referrals: Kiesha Duncan CNP [Advanced Practice Nurse] - 10/08/18 9:00 am All,Cem Carrasco MD [Non-Partnered Physician] - (2) Diabetes Qualifiers: Diabetes mellitus type: type 2 Diabetes mellitus superintendent container terminal insulin use: without skilled nursing use Diabetes mellitus complication status: without complication Qualified Code(s): E11.9 - Type 2 diabetes mellitus without complications
[2018-09-30] MEDS: Ondansetron 4 MG/2 ML VIAL IVP PRN (21:48)
[2018-10-01 03:30] LABS: Basophils % 0.3 %; Eosinophils # 0.2 K/mcL (0.0-0.6); Eosinophils % 1.6 %; Hematocrit 29.8 % (37.5-50.1); Immature Granulocytes % 1.7 % (0-4); Lymphocytes # 1.9 K/mcL (0.6-4.6); Lymphocytes % 17.2 %; Mean Corpuscular HGB Conc 33.6 g/dL (31.6-35.5); Mean Corpuscular Hemoglobin 30.9 pg (28.0-33.3); Mean Platelet Volume 9.9 fL (9.4-12.4); Monocytes # 1.1 K/mcL (0.0-1.3); Monocytes % 9.9 %; Neutrophils # 7.5 K/mcL (1.6-8.9); Platelet Count 247 K/mcL (140-400); Red Blood Count 3.24 M/mcL (4.19-5.50); Red Cell Distribution Width 12.6 % (11.5-14.5); Segmented Neutrophils % 69.3 %
[2018-10-01 03:45] LABS: BUN/Creatinine Ratio 15 (6-26); Blood Urea Nitrogen 16 mg/dL (8-23); Calcium 7.7 mg/dL (8.6-10.3); Carbon Dioxide 27 mEq/L (23-29); Chloride 105 mEq/L (98-107); Glucose 219 mg/dL (70-105); Osmolality,Calculated 290 (280-300); Potassium 3.6 mEq/L (3.5-5.1); Sodium 136 mEq/L (136-145); eGFR For Non-African Americans > 60 (> 60)
[2018-10-01 06:10] VITALS: BP 113/69
[2018-10-01] MEDS: *HR* Heparin 5,000 UNIT/ML VIAL SQ SCH (06:11)
[2018-10-01] MEDS: Insulin LISPRO 300 UNITS/3 ML VIAL SQ SCH (08:17)
[2018-10-01] MEDS: Aspirin Enteric Coated 81 MG Tablet PO SCH (08:17)
[2018-10-01] MEDS: Isosorbide MONOnitrate (24 HR) 60 MG TAB.ER.24H PO SCH (08:17)
[2018-10-01] MEDS: Famotidine 20 MG TABLET PO SCH (08:17)
--- NOTE | 2018-10-01 08:59 | General Surgery Progress Note ---
<Lexi Zheng - Last Filed: 10/01/18 09:20> Date of Encounter: 10/01/18 Time of Encounter: 07:20 - Assessment and Plan (1) Incisional hernia with obstruction but no gangrene Status: Acute POD#5 incisional hernia repair with mesh on 09/26/18. Having bowel function. Decrease in YULI sanguinous drainage today. OK for discharge. Subjective Narrative: Patient seen and examined. No acute events overnight. Patient is resting comfortably in bed. Patient reports pain at surgical site only with coughing. Patient reports making bowel movements. Patient states hes ready to go home. Denies fever, nausea, abdominal pain. Denies any other complaints. OK for discharge. Objective Vital Signs - Last 8 Hours Temp Pulse Resp BP Pulse Ox 10/01/18 06:09 99.7 F H 79 18 113/69 95 Intake and Output 09/30/18 10/01/18 10/01/18 23:59 07:59 15:59 Intake Total 1600 / 1600 Output Total 50 / 50 80 / 80 Balance 1550 / 1550 -80 / -80 Intake: IV Fluids 1000 / 1000 Oral 600 / 600 Output: Wound Drainage 50 / 50 80 / 80 Right Abdomen 50 / 50 80 / 80 Other: Meal Dinner Percent of Meal Consumed 90% Stool Size Small Stool Consistency soft formed # Voids 1 1 # Bowel Movements 0 0 Blood Glucose* 206 172 - Additional Exam VITAL SIGNS: Reviewed. See [facility] GENERAL: In no apparent distress. HEENT: Normocephalic, atraumatic, pupils are equal and reactive, extraocular motions intact, oral mucosa is pink and moist. CHEST/RESPIRATORY: The thorax is free from signs of trauma. Lung sounds: clear to auscultation, normal respiratory effort CARDIAC: Regular rate and rhythm. Normal S1 and S2, without murmurs, gallops, or rubs. VASCULAR: No Edema. ABDOMEN: Soft, expected postoperative tenderness, normal bowel sounds, nondistended INCISION: Surgical incision is clean, dry, and intact. There are no signs of cellulitis or infection noted. WOUNDS/DRAINS: RLQ YULI drain site isWNL. There is minimal sanguinous drainage in the YULI bulb MUSCULOSKELETAL: Good range of motion of all major joints. Extremities without clubbing, cyanosis or edema. NEUROLOGIC EXAM: Alert and oriented x 3. Speech normal. Follows commands. PSYCHIATRIC: Mood normal. SKIN: No rash or lesions. - Labs 10/01/18 02:54 10/01/18 02:54 Diabetes panel 10/01/18 Range/Units 02:54 Sodium 136 (136-145) mEq/L Potassium 3.6 (3.5-5.1) mEq/L Chloride 105 (98-107) mEq/L Carbon Dioxide 27 (23-29) mEq/L BUN 16 (8-23) mg/dL Creatinine 1.06 (0.70-1.30) mg/dL Glucose 219 H (70-105) mg/dL Calcium 7.7 L (8.6-10.3) mg/dL Calcium panel 10/01/18 Range/Units 02:54 Calcium 7.7 L (8.6-10.3) mg/dL Pituitary panel 10/01/18 Range/Units 02:54 Sodium 136 (136-145) mEq/L Potassium 3.6 (3.5-5.1) mEq/L Chloride 105 (98-107) mEq/L Carbon Dioxide 27 (23-29) mEq/L BUN 16 (8-23) mg/dL Creatinine 1.06 (0.70-1.30) mg/dL Glucose 219 H (70-105) mg/dL Calcium 7.7 L (8.6-10.3) mg/dL Adrenal panel 10/01/18 Range/Units 02:54 Sodium 136 (136-145) mEq/L Potassium 3.6 (3.5-5.1) mEq/L Chloride 105 (98-107) mEq/L Carbon Dioxide 27 (23-29) mEq/L BUN 16 (8-23) mg/dL Creatinine 1.06 (0.70-1.30) mg/dL Glucose 219 H (70-105) mg/dL Calcium 7.7 L (8.6-10.3) mg/dL - VTE Documentation of Mechanical Device: Intermittent pneumatic compression device Consult Discharge Plan - Plan Instructions: Open Herniorrhaphy (DC) Additional Instructions: General Surgical Discharge Instructions 1. No pushing, pulling, or lifting greater than 15 lbs for 6 weeks. 2. You may shower beginning today, but no tub baths, soaking, or swimming for 2 weeks. 3. You may resume driving when you are off narcotics and are safe to react in a car. 4. Take ibuprofen every 8 hours for discomfort. If this does not relieve discomfort, you may take the as needed Percocet. Take narcotics as directed. Do not take more narcotics then directed and do not share your narcotics with any other person. Do not drink alcohol while on narcotics. 5. Take stool softeners (Colace) or a water based laxative (Miralax) while taking narcotics. You may hold for loose stools. 6. Report any fevers greater than 100.5F, increase abdominal discomfort, drainage that looks like pus, increased redness or pain at the surgical site, or any vomiting. 7. Report any pain in the calves, shortness of breath, or rapid heartbeat. 8. Follow-up in the office as directed. 9. If you were prescribed antibiotics, do not stop them without talking to your provider. Daily YULI Drain Care: 1. Remove dressings. Shower with antibacterial soap. 2. Do not let the YULI drain dangle from your body. Use the safety pin to secure to your clothing. Secure the YULI to a lanyard or other type of long necklace when you shower. 3. Replace drain gauze and taped to secure. 4. Record the output from your YULI bulb (at least once daily) on the form provided and bring this with you to your follow-up appointment. 5. Keep the YULI drain to suction (squeeze the bulb and replace the cap while squeezing). 6. Strip the lines twice daily (hold onto the line as close to the body as you can, then with the other hand push the contents of the line into the YULI bulb). Referrals: Dr. Carrizales [Other] - 10/04/18 9:00 am (Previously set up appointment for patient regular check up.) Kiesha Duncan CNP [Advanced Practice Nurse] - 10/08/18 9:00 am Cem Carrizales MD [Non-Partnered Physician] - 10/11/18 3:00 pm Prescriptions: Ondansetron ODT [Zofran ODT] 4 mg SL Q6HR PRN #15 tab.rapdis PRN Reason: Nausea Docusate Sodium [Colace] 100 mg PO BID #30 capsule RX: Ibuprofen 800 mg PO Q8H #42 tablet RX: Oxycodone HCl/Acetaminophen [Percocet 5-325 mg Tablet] 1 each PO Q6H PRN 7 Days #28 tablet PRN Reason: Breakthrough Pain <Maurice,Viral T - Last Filed: 10/01/18 14:57> Date of Encounter: 10/01/18 - Assessment and Plan (1) Incisional hernia with obstruction but no gangrene Status: Acute Objective Intake and Output 09/30/18 10/01/18 10/01/18 23:59 07:59 15:59 Intake Total 1600 / 1600 480 / 480 Output Total 50 / 50 80 / 80 Balance 1550 / 1550 -80 / -80 470 / 470 Intake: IV Fluids 1000 / 1000 Oral 600 / 600 480 / 480 Output: Urine 0 / 0 Wound Drainage 50 / 50 80 / 80 Right Abdomen 50 / 50 80 / 80 Other: Meal Dinner Breakfast Percent of Meal Consumed 90% 100% Stool Size Small Stool Consistency soft formed # Voids 1 1 # Bowel Movements 0 0 0 Blood Glucose* 206 172 - Labs 10/01/18 02:54 10/01/18 02:54 Diabetes panel 10/01/18 Range/Units 02:54 Sodium 136 (136-145) mEq/L Potassium 3.6 (3.5-5.1) mEq/L Chloride 105 (98-107) mEq/L Carbon Dioxide 27 (23-29) mEq/L BUN 16 (8-23) mg/dL Creatinine 1.06 (0.70-1.30) mg/dL Glucose 219 H (70-105) mg/dL Calcium 7.7 L (8.6-10.3) mg/dL Calcium panel 10/01/18 Range/Units 02:54 Calcium 7.7 L (8.6-10.3) mg/dL Pituitary panel 10/01/18 Range/Units 02:54 Sodium 136 (136-145) mEq/L Potassium 3.6 (3.5-5.1) mEq/L Chloride 105 (98-107) mEq/L Carbon Dioxide 27 (23-29) mEq/L BUN 16 (8-23) mg/dL Creatinine 1.06 (0.70-1.30) mg/dL Glucose 219 H (70-105) mg/dL Calcium 7.7 L (8.6-10.3) mg/dL Adrenal panel 10/01/18 Range/Units 02:54 Sodium 136 (136-145) mEq/L Potassium 3.6 (3.5-5.1) mEq/L Chloride 105 (98-107) mEq/L Carbon Dioxide 27 (23-29) mEq/L BUN 16 (8-23) mg/dL Creatinine 1.06 (0.70-1.30) mg/dL Glucose 219 H (70-105) mg/dL Calcium 7.7 L (8.6-10.3) mg/dL - Attending Attestation I examined this patient and my medical decision-making was reviewed with the Resident Physician. I agree with the documented findings, disposition and treatment plan as described except to the extent set forth below. The patient is seen and evaluated on morning rounds. Patient's care is discussed with the resident and I reviewed the documentation which is appropriate. He is tolerating regular diet and we should be able to discharge him to home with his Lucas-Bernal drain in place. This will be removed in clinic next week.
--- NOTE | 2018-10-01 12:00 | Discharge Summary ---
Date of Encounter: 10/01/18 Time of Encounter: 10:00 - Discharge Diagnosis (1) DVT prophylaxis Priority: Secondary Status: Acute (2) Diabetes Priority: Secondary Status: Acute Qualifiers: Diabetes mellitus type: type 2 Diabetes mellitus joint terminal attack controller insulin use: without fdc use Diabetes mellitus complication status: without complication Qualified Code(s): E11.9 - Type 2 diabetes mellitus without complications (3) Small bowel obstruction Priority: Primary Status: Acute (4) Ventral hernia with bowel obstruction Priority: Primary Status: Acute (5) GIOVANNY (acute kidney injury) Priority: Secondary Status: Acute (6) Hyponatremia Priority: Secondary Status: Acute Hospital course: Mr. العراقي is a 63 year old male presented to ER for small bowel obstruction. Surgical consult saw patient. Patient has large ventral hernia. Patient was placed on NG tube. Patient had ventral hernia repair by surgery. After surgery, patient recover well. Tolerated regular diet. Patient has mild decreased hemoglobin most likely due to bloody YULI drain. Surgical consult cleared patient to discharge home. Patient will DC home today. Family member was educated to take care the incision wound and YULI drain. PCP will evaluate the patient and arrange home health if necessary. Patient will also follow-up with surgery as outpatient. I have seen and examined the patient today. Patient feels fine, no abdominal pain nausea or vomiting. Had a bowel movement. No melena. Vitals are stable. Will DC patient home and continue outpatient follow-up. Discharge discussed with: patient - Time Spent with Patient Total time spent providing and/or coordinating discharge services: 40 minutes Less than 30 minutes - Discharge Medications Prescriptions: Ondansetron ODT [Zofran ODT] 4 mg SL Q6HR PRN #15 tab.rapdis PRN Reason: Nausea Docusate Sodium [Colace] 100 mg PO BID #30 capsule Ibuprofen 800 mg PO Q8H #42 tablet Oxycodone HCl/Acetaminophen [Percocet 5-325 mg Tablet] 1 each PO Q6H PRN 7 Days #28 tablet PRN Reason: Breakthrough Pain Home Medications: Aspirin [Lo-Dose Aspirin EC] 81 mg PO DAILY 05/24/18 [History] Carvedilol [Coreg] 6.25 mg PO BID 05/24/18 [History] Clopidogrel [Plavix] 75 mg PO DAILY 05/24/18 [History] Famotidine [Pepcid] 40 mg PO DAILY 05/24/18 [History] Glimepiride [Amaryl] 2 mg PO DAILY 05/24/18 [History] Isosorbide MONOnitrate (24 HR) [Imdur] 60 mg PO DAILY 05/24/18 [History] Metformin HCl [Fortamet] 500 mg PO QID 05/24/18 [History] Simvastatin [Zocor] 40 mg PO HS 05/24/18 [History] SitaGLIPtin [Januvia] 100 mg PO DAILY 05/24/18 [History] Docusate Sodium [Colace] 100 mg PO BID #30 capsule 10/01/18 [Rx] Ibuprofen 800 mg PO Q8H #42 tablet 10/01/18 [Rx] Ondansetron ODT [Zofran ODT] 4 mg SL Q6HR PRN #15 tab.rapdis 10/01/18 [Rx] Oxycodone HCl/Acetaminophen [Percocet 5-325 mg Tablet] 1 each PO Q6H PRN 7 Days #28 tablet 10/01/18 [Rx] Allergies/Adverse Reactions: Allergy/AdvReac Type Severity Reaction Status Date / Time No Known Allergies Allergy Verified 09/27/18 09:51 Date of admission: 09/27/18 12:50 Primary care physician: PCP NONE Consults: 09/25/18 23:20 Consult to Surgery [CONS] Stat Consulting Provider: [facility] Reason for Consult: SBO Time Notified: 23:21 Call Completed: Yes 09/27/18 10:58 Consult to Vascular Surgery [CONS] Routine Consulting Provider: Vascular Surgery Aye Reason for Consult: incidental finding on CT abd suspected pencentrated aortic ulcer or aneurysm Call Completed: Yes 09/27/18 11:01 Consult to Occupational Therapy [CONS] Routine Comment: Evaluate, develop and implement POC Reason for Consult: Deconditioning, increased weakness Does patient have active BEDREST order?: No Is patient medically & hemodynamically stable?: Yes Patient assessed for mobility or mobilized this visit?: No Consult to Physical Therapy [CONS] Routine Comment: Evaluate, develop and implement POC Reason for Consult: Deconditioning, increased weakness Does patient have active BEDREST order?: No Is patient medically & hemodynamically stable?: Yes Patient assessed for mobility or mobilized this visit?: No 09/29/18 10:18 Consult to Support Architect [CONS] Routine Reason for SW Consult: possible need for home health Discharging clinician: Ludivina Yoon Anticipated date of discharge: 10/01/18 - Constitutional Vitals: Temp Pulse Resp BP Pulse Ox 99.7 F H 79 18 113/69 95 10/01/18 06:09 10/01/18 06:09 10/01/18 06:09 10/01/18 06:09 10/01/18 06:09 General appearance: Present: cooperative, A&O X 3, pleasant, no acute distress, answers questions appropriately Exam: Pt is AAO x 3, in NAD HEENT: NC/AT, PERRL Neck: Supple, no JVD, no LAD Lungs: CTA b/l Heart: S1S2, RRR Abd: Soft, mild tenderness w/o rebound or guarding, BS present. Ext: ROM wnl, no pedal edema Neuro: No focal deficit - - Patient Status Disposition: Home, Self-Care Condition: Good Functional capacity at discharge: uses cane/walker Overall status at discharge: patient is progressing back to baseline - Discharge Instructions Instructions: Open Herniorrhaphy (DC) Follow Up With: Dr. Carrizales [Other] - 10/04/18 9:00 am (Previously set up appointment for patient regular check up.) Kiesha Duncan CNP [Advanced Practice Nurse] - 10/08/18 9:00 am Cem Carrizales MD [Non-Partnered Physician] - 10/11/18 3:00 pm Additional Instructions: General Surgical Discharge Instructions 1. No pushing, pulling, or lifting greater than 15 lbs for 6 weeks. 2. You may shower beginning today, but no tub baths, soaking, or swimming for 2 weeks. 3. You may resume driving when you are off narcotics and are safe to react in a car. 4. Take ibuprofen every 8 hours for discomfort. If this does not relieve discomfort, you may take the as needed Percocet. Take narcotics as directed. Do not take more narcotics then directed and do not share your narcotics with any other person. Do not drink alcohol while on narcotics. 5. Take stool softeners (Colace) or a water based laxative (Miralax) while taking narcotics. You may hold for loose stools. 6. Report any fevers greater than 100.5F, increase abdominal discomfort, drainage that looks like pus, increased redness or pain at the surgical site, or any vomiting. 7. Report any pain in the calves, shortness of breath, or rapid heartbeat. 8. Follow-up in the office as directed. 9. If you were prescribed antibiotics, do not stop them without talking to your provider. Daily YULI Drain Care: 1. Remove dressings. Shower with antibacterial soap. 2. Do not let the YULI drain dangle from your body. Use the safety pin to secure to your clothing. Secure the YULI to a lanyard or other type of long necklace when you shower. 3. Replace drain gauze and taped to secure. 4. Record the output from your YULI bulb (at least once daily) on the form provided and bring this with you to your follow-up appointment. 5. Keep the YULI drain to suction (squeeze the bulb and replace the cap while squeezing). 6. Strip the lines twice daily (hold onto the line as close to the body as you can, then with the other hand push the contents of the line into the YULI bulb). - Diet and Activity Activity: increase activity as tolerated Diet: diabetic diet - VTE Documentation of Mechanical Device: Intermittent pneumatic compression device
== END 2018-10-01 12:40 | disposition home or self-care (01) | DRG 354 ==
LOC: 3ANU 19:41 → EMEROOARM 19:41 → 3ANU 09-26 00:52 → SUATTDRO 09-27 12:50
PROVIDERS: ADMIT Family Medicine; ATTEND Internal Medicine